=== PATIENT | female | born 1960 | race Caucasian/White ===

== ENCOUNTER 2023-04-24 08:21 | Emergency (ER) | payer OTHER, SELFPAY ==
[2023-04-24] VITALS (45 sets, daily range): BP systolic 96–137; BP diastolic 41–102; PULSE 86–118; RESP 14–39; TEMP 36.6; O2SAT 88–100
--- NOTE | ~2023-04-24 | XR_ITS ---
XR chest 1V portable 04/24/2023 09:01 Indication: Shortness of breath. COPD. Procedure: AP portable chest Comparison: Comparison to multiple prior studies sequentially, with oldest reviewed study dated 07/15. Findings: Heart size normal. No focal air space disease, pulmonary edema, pleural effusion or suspect ed pneumothorax. The lungs are hyperinflated which is consistent with, but not diagnostic of chronic obstructive pulmonary disease. There are multiple healed left rib fractures. No acute osseous abnorma lity. Osteopenia. Impression: 1: No acute cardiopulmonary disease. Reviewed, dictated and finalized at location B. Impression: 1: No acute cardiopulmonary disease.
--- NOTE | 2023-04-24 08:34 | ECG_ITS ---
Measurements Intervals [place] Rate: 120 P: 78 NV: 115 QRS: 71 QRSD: 82 T: 61 QT: 294 QTc: 417 Interpretive Statements SINUS TACHYCARDIA WITH SHORT NV INTERVAL VOLTAGE CRITERIA FOR LVH BASELINE ARTIFACT- II, III, AVR, AVL, AVF ABNORMAL ECG NO PREVIOUS ECG AVAILABLE FOR COMPARISON Electronically Signed On 04-24-2023 9:32:40 CDT by Baldev Hogan D.O.
--- NOTE | 2023-04-24 08:55 | ED.GENADULT ---
HPI - General Adult General Chief complaint: Fall <Kvng Danielson MD - Last Filed: 04/24/23 18:17> Stated complaint: BUTTOCK LAC, SOB HX COPD <Kvng Danielson MD - Last Filed: 04/24/23 18:17> Time Seen by Provider: 04/24/23 08:51 <Kvng Danielson MD - Last Filed: 04/24/23 18:17> History of Present Illness HPI narrative: 63-year-old female presented the ED for evaluation of increased shortness of breath and back pain after a fall. Patient reports that she lost her balance last night and struck a dresser. Patient does have history of COPD but is not on oxygen at home. Patient reports after being on the floor for the majority of the night she had increased shortness of breath. Patient was treated with 125% Medrol and a breathing treatment in route. <Kvng Danielson MD - Last Filed: 04/24/23 18:17> Related Data Allergies/adverse reactions: Allergies Allergy/AdvReac Type Severity Reaction Status Date / Time peanut Allergy Unknown Unknown Verified 04/24/23 08:43 <Kvng Danielson MD - Last Filed: 04/24/23 18:17> Review of Systems Review of Systems: All systems reviewed & are unremarkable except as noted in HPI and below <Kvng Danielson MD - Last Filed: 04/24/23 18:17> Exam Narrative: APPEARANCE: Nausea and vomiting upon arrival to the ED HEAD: normocephalic, atraumatic. EYES: PERRLA/EOMI, conjunctivae clear. NOSE: Normal no drainage EARS:TMS clear with good light reflex. THROAT: Pharynx clear, no exudate. NECK: Supple. No adenopathy, no masses. RESPIRATORY: Airway patent, respirations nonlabored. Clear to auscultation bilaterally, no rales, rhonchi, wheezing. CARDIOVASCULAR: Regular rate and rhythm without murmurs rubs or gallops. ABDOMINAL: Soft, nontender, nondistended, normal bowel sounds MUSCULOSKELETAL: Moves all extremities. Strength/ROM intact, No edema, No calf tenderness. NEURO: Alert. Cranial nerves II through XII intact. SKIN: Warm, dry. Normal Color <Kvng Danielson MD - Last Filed: 04/24/23 18:17> Course Course Emergency Course: 59-year-old female presented the ED for evaluation after having a ground-level fall and having increased shortness of breath. Patient does have history of COPD was unable to care for self or breathing treatment this morning. After being treated for anxiety and being provided a breathing treatment patient states she feels improved. Patient was saturating well on room air. Patient did have a minor leukocytosis of 12.8. Patient's hemoglobin was 10.2. Patient CMP is similar to her baseline. Patient was negative for COVID RSV and for influenza. Chest x-ray showed no acute cardiopulmonary abnormality. EKG showed sinus tachycardia. Patient's laceration was repaired as described in the procedure note and patient was started on antibiotics. Patient's tetanus was updated. Patient was provided 2 days off from work. Patient was updated on reasons to return to the emergency department. All questions and concerns were addressed and patient was well-appearing at time of discharge. <Kvng Danielson MD - Last Filed: 04/24/23 18:17> Vital Signs Vital signs: Vital Signs Pulse Oximetry 88 L 04/24/23 08:26 Oxygen Delivery Room Air 04/24/23 08:26 Temperature 97.8 F 04/24/23 08:27 Pulse Rate 106 H 04/24/23 13:30 Respiratory Rate 19 04/24/23 13:16 Blood Pressure 137/68 04/24/23 13:16 Pulse Oximetry 99 04/24/23 13:16 Oxygen Delivery Nasal Cannula 04/24/23 08:38 Oxygen Flow Rate 2 04/24/23 08:38 <Kvng Danielson MD - Last Filed: 04/24/23 18:17> Vital Signs Pulse Oximetry 88 L 04/24/23 08:26 Oxygen Delivery Room Air 04/24/23 08:26 Temperature 97.8 F 04/24/23 08:27 Pulse Rate 106 H 04/24/23 13:30 Respiratory Rate 19 04/24/23 13:16 Blood Pressure 137/68 04/24/23 13:16 Pulse Oximetry 99 04/24/23 13:16 Oxygen Delivery Nasal Cannula 04/24/23 08:38 Oxygen Flow Rate 2
[2023-04-24] MEDS: LORazepam INJ (*CRX) 2 MG/ML VIAL 0.5 MG IV PUSH (09:03)
[2023-04-24] MEDS: SODIUM CHLORIDE 0.9% IV 1,000 ML 999 ML IV CONT (09:03)
[2023-04-24] MEDS: ONDANSETRON INJ 4 MG/2 ML VIAL IV PUSH (09:03)
[2023-04-24] MEDS: ALBUTEROL SULFATE NEB 2.5 MG/3 ML INH INHALATION (09:11)
[2023-04-24 09:29] LABS: Basophils Percent Auto 0.3 % (0.2-1.2); Eosinophils Percent Auto 0.2 % (0-4.4); Hematocrit 30.6 % (37.0-47.0); Hemoglobin 10.2 g/dL (12.0-15.0); Immature Granulocyte Absolute 0.15 K/mm3 (0.00-0.031); Immature Granulocyte Percent A 1.2 % (0-0.5); Lymphocytes Absolute Auto 1.25 K/mm3 (0.9-3.2); Lymphocytes Percent Auto 9.7 % (18.3-44.2); Mean Corpuscular HGB Conc 33.3 g/dl (32-36); Mean Corpuscular Hemoglobin 33.1 pg (26-34); Mean Corpuscular Volume 99.4 fl (80-100); Mean Platelet Volume 9.9 fl (7.4-10.4); Monocytes Absolute Auto 0.6 K/mm3 (0.1-0.6); Monocytes Percent Auto 4.6 % (2.6-8.5); Neutrophils Absolute Auto 10.8 K/mm3 (1.3-6.7); Platelet Count Result 226 k/mm3 (150-375); Red Blood Count 3.08 M/mm3 (4.2-5.4); Red Cell Distribution Width 13.3 % (11.5-14.5); White Blood Count 12.8 K/mm3 (4.5-10.0)
[2023-04-24 09:38] LABS: Alanine Aminotransferase 15 U/L (6-35); Albumin Level 2.6 g/dL (3.5-5.1); Alkaline Phosphatase 41 U/L (38-126); Anion Gap 6 mmol/L (8-16); Aspartate Amino Transferase 20 U/L (14-36); Bilirubin,Total 0.4 mg/dL (0.2-1.3); Blood Urea Nitrogen 10 mg/dL (7-17); Calcium 6.6 mg/dL (8.4-10.2); Carbon Dioxide 20 mmol/L (22-30); Chloride 104 mmol/L (98-107); Creatine Kinase 73 U/L (30-135); Estimated CRCL calculation 55 ml/min; Estimated Glomerular Filt Rate > 60; Glucose 132 mg/dL (65-110); Potassium 4.8 mmol/L (3.4-5.0); Sodium 130 mmol/L (137-145)
[2023-04-24 09:47] LABS: NT Pro B Type Natriuretic Pept 32 pg/mL (19.9-100)
[2023-04-24 10:23] LABS: Influenza A QL RT-PCR Negative (Negative); Influenza B QL RT-PCR Negative (Negative); RSV RNA, RT-PCR Negative (Negative); SARS-CoV-2 RNA PCR Negative (Negative)
[2023-04-24] MEDS: AMOXICILLIN/CLAVULANATE K 875-125 MG TAB 1 TABLET PO (13:11)
[2023-04-24] MEDS: TETANUS,DIPHTHERIA,AC PERTUSSIS ADULT (0.5 ML) BOOSTRIX IM (13:11)
[2023-04-24] MEDS: AZITHROMYCIN 250 MG TABLET 500 MG PO (13:11)
== END 2023-04-24 13:44 | disposition home or self-care (01) ==
PROVIDERS: Emergency Provider Emergency Medicine; PCP Internal Medicine
DX: J44.1 Chronic obstructive pulmonary disease with (acute) exacerbation (principal); S31.801A Laceration without foreign body of unspecified buttock, initial encounter; W01.190A Fall on same level from slipping, tripping and stumbling with subsequent striking against furniture, initial encounter; Z20.822 Contact with and (suspected) exposure to COVID-19; Z23 Encounter for immunization
CPT/HCPCS: 12005; 36415; 71045; 80053; 82550; 83880; 85025; 87637; 90471; 90715; 93005; 94640; 96361; 96374; 96375; 99284; A9270; J2060; J2405; J7030

== ENCOUNTER 2023-08-08 15:28 | Emergency (ER) | payer OTHER, SELFPAY ==
[2023-08-08 15:42] VITALS: BP 133/68; PULSE 96; RESP 16; TEMP 36.3; O2SAT 97
--- NOTE | 2023-08-08 15:50 | ED.GENADULT ---
HPI - General Adult General Chief complaint: Unspecified Stated complaint: chills, decreased appetite Time Seen by Provider: 08/08/23 17:37 Source: patient Mode of arrival: ambulatory Limitations: no limitations History of Present Illness HPI narrative: Patient is a 63-year-old female who presents emergency department today ambulatory with a steady gait for evaluation of generalized body aches, decreased appetite, chills that has been going on for about a week now. Denies any chest pain, shortness of breath, urinary symptoms, dizziness, nausea, vomiting, diarrhea, abdominal pain. Denies any known exposure to anybody with any similar illness. She states she is freezing. Did not take any medications. Related Data Allergies Allergy/AdvReac Type Severity Reaction Status Date / Time peanut Allergy Unknown Unknown Verified 04/24/23 08:43 Review of Systems Review of Systems: CONSTITUTIONAL:+ chills, decreased appetite, generalized fatigue and body aches EYES: Denies visual changes, redness, or discharge. ENT: Denies rhinorrhea, congestion, sore throat, or otalgia. CARDIOVASCULAR: Denies chest pain, palpitations, or edema. RESPIRATORY: Denies cough or dyspnea. GASTROINTESTINAL: Denies abdominal pain, nausea, vomiting, or diarrhea. GENITOURINARY: Denies dysuria or hematuria. SKIN: Denies rash or itching. MUSCULOSKELETAL: Denies back pain. NEUROLOGIC: Denies headache, numbness, or weakness. PSYCHIATRIC: Denies anxiety or depression. All systems reviewed & are unremarkable except as noted in HPI and below Exam Narrative: BRIEF FOCUSED EXAM: elderly thin female resting on the chair, respirations regular, even, and non-labored, she has the chills presently and appears fatigued. Lungs are clear throughout. 1740: GENERAL: elderly thin female resting on the chair, respirations regular, even, and non-labored, she has the chills presently and appears fatigued. HEAD: Normocephalic, atraumatic. EYES: PERRLA and EOMI. ENT: Nares clear, no rhinorrhea or epistaxis. Mucous membranes moist. NECK: Supple. CHEST: Clear to auscultation. No respiratory distress. HEART: Regular rate and rhythm. No murmur heard. Normal peripheral pulses. ABDOMEN: Soft, nontender, nondistended, normal active bowel sounds. EXTREMITIES: Normal range of motion. No edema. SKIN: Warm, dry, no rash. NEURO: No focal deficits. A&O x4 PSYCH: Normal mood and affect. Course Vital Signs Vital signs: Vital Signs Temperature 97.4 F L 08/08/23 15:42 Pulse Rate 96 08/08/23 15:42 Respiratory Rate 16 08/08/23 15:42 Blood Pressure 133/68 08/08/23 15:42 Pulse Oximetry 97 08/08/23 15:42 Oxygen Delivery Room Air 08/08/23 15:42 Temperature 97.4 F L 08/08/23 15:42 Pulse Rate 74 08/08/23 17:44 Respiratory Rate 18 08/08/23 17:44 Blood Pressure 124/77 08/08/23 17:44 Pulse Oximetry 100 08/08/23 17:44 Oxygen Delivery Room Air 08/08/23 15:42 Medical Decision Making MDM Narrative Medical decision making narrative: presents for viral symptoms. will obtain viral swab. she has no other concerning reported symptoms or abnormal vitals, she is non-toxic Lab before the viral swab is negative. Patient has no other concerns reported symptoms. Her symptoms do still sound very viral. She was given medication while here. We discussed supportive care measures for symptoms including [id number] cold and flu medication. No further workup warranted at this time without any other reported symptoms. Patient is nontoxic in appearance. Stable re-evaluation exam just before discharge. Patient in no acute distress. Vitals within normal limits. Discussed return precautions with the patient including all the red flag signs or symptoms of when to return the patient. The patient verbalized understanding and was agreeable with discharge and close follow-up Vital Signs Vital Signs: Vital Signs Temperature 97.4 F L 08/08/23 15:42 Pulse Rate 96
[2023-08-08 16:31] LABS: Influenza A QL RT-PCR Negative (Negative); Influenza B QL RT-PCR Negative (Negative); SARS-CoV-2 RNA PCR Negative (Negative)
[2023-08-08] MEDS: ACETAMINOPHEN 500 MG TABLET 1000 MG PO (17:31)
[2023-08-08 17:44] VITALS: BP 124/77; PULSE 74; RESP 18; O2SAT 100
== END 2023-08-08 17:46 | disposition home or self-care (01) ==
PROVIDERS: Emergency Provider Nurse Practitioner; PCP Internal Medicine
DX: B34.9 Viral infection, unspecified (principal); R68.83 Chills (without fever); Z20.822 Contact with and (suspected) exposure to COVID-19
CPT/HCPCS: 87636; 99283; A9270

== ENCOUNTER 2024-12-09 12:33 | Outpatient (CLI) | payer MEDICARE, SELFPAY ==
--- OUTSIDE RECORDS SUMMARY | 2024-12-09 14:06 | XMS_ITS | Clinical Summary ---
Author Organization [facility] Address [address] [place] [address] Care Team Providers Care Process Stripper Name Role Phone Crow EDEN MD, Sher Mike Primary Care Provider [phone] Source Comments [facility] Affiliates and Associated Physician Practices is amultiple site organization consisting of ambulatory clinics and hospital sitesin [place]. This disclosure is being madepursuant to the Care Everywhere program and may not contain all information available regarding this patient. 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[employer] Gender Identity Not on file Sexual Orientation Not on file Plan of Treatment Health Maintenance Due Date Last Done Comments BONE DENSITY TESTING 1959 COLOGUARD (AGES 45-75) - COL ON CA SCREENING 1959 COLON MONITORING 1959 COLONOSCOPY - COLON CA SCREENING 1959 CT COLONOGRAPHY - COLON CA SCREENING 1959 Colorectal Cancer Screening 1959 FIT - COLON CA SCREENING 1959 FLEX SIG - COLON CA SCREENING 1959 LIPID TESTING 1959 MAMMOGRAM 1959 HIV SCREENING 1974 HEPATITIS C SCREENING 01/28/1977 DTAP/TDAP/TD VACCINES (1 - Tdap) 1978 PNEUMOCOCCAL VACCINE 50+ (1 of 1 - PCV) 2009 ZOSTER VACCINE (1 of 2) 2009 COVID-19 VACCINE (1 - 2023-2 5 season) 2024 DEPRESSION SCREENING 08/14/2024 INFLUENZA VACCINE (Season Ended) 2025 Respiratory Syncytial Virus (RSV) Vaccine Pt: or over 60 yrs (1 - 1-dose 75+ series) 2034 HEPATITIS B VACCINE Aged Out No longe r eligible based on patient's age to complete this topic HIB VACCINE Aged Out No longer eligi ble based on patient's age to complete this topic HPV VACCINE Aged Out No longer eligi ble based on patient's age to complete this topic MENINGOCOCCAL (Group B) VACC INE SHARED DECISION-MAKING Aged Out No longer eligibl e based on patient's age to complete this topic MENINGOCOCCAL GROUPS A/C/Y/W VACCINE Aged Out No longer eligible b ased on patient's age to complete this topic Insurance [facility] Care Teams Process Stripper Relationship Specialty Start Date End Date Sher Maria III, MD [address] [place] [address] PCP - General 11/16/09
--- OUTSIDE RECORDS SUMMARY | 2024-12-09 14:06 | XMS_ITS | CONTINUITY OF CARE DOCUMENT ---
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
--- OUTSIDE RECORDS SUMMARY | 2024-12-09 14:06 | XMS_ITS | Clinical Summary ---
Author Organization [id number] Address [address] [place] [address] Phone Care Team Providers Care Patient Educator Name Role Phone Bassam Blackman MD Primary Care Provider Elsa Maurice MD Unavailable Molly Osorio MD Unavailable [phone] Tigre Madison MD Unavailable John Gorman MD Unavailable [phone] Aditi Eckert MD Unavailable [phone] Allergies No known active allergies Medications calcium carbonate (FAST DISSOLVE ANTACID) 600 mg calcium (1.5 gram) chewable tablet 1 twice a day 60 0 0 Active fluticasone furoate-vilante rol (BREO ELLIPTA) 100-25 mcg/dose diskus inhaler Inhale 1 puff daily Rinse mouth with water after use. Do not swallow. Active albuterol HFA (PROVENTIL HFA,VENTOLIN HFA,PROAIR HFA) 90 mcg/actuation inhaler Inhale 2 puffs every 6 (six) hours as needed for wheezing 1 Inhaler 9 Active varicella-zoste r [id number], PF, (Shingrix, PF,) 50 mcg/0.5 mL vaccine Inject 0.5 ml IM day 0 and then repeat 2 months later. 0.5 mL 1 0 Active cyclobenzaprine (FLEXERIL) 10 mg tablet TAKE 1 TABLET(10 MG) BY MOUTH EVERY NIGHT 30 tablet 2 Active primidone (MYSOLINE) 50 mg tablet Take 1 tablet (50 mg total) by mouth nightly 30 tablet 2 Active mupirocin (BACTROBAN) 2 % ointment Apply topically 2 (two) times a day 30 g 2 3 Active folic acid (FOLVITE) 1 mg tablet Take 2 tablets (2 mg total) by mouth daily 90 tablet 1 3 Active traMADoL (ULTRAM) 50 mg tablet Take 1 tablet (50 mg total) by mouth every 8 (eight) hours as needed for pain 90 tablet 1 4 Active ergocalciferol (VITAMIN D) 50,000 unit capsule TAKE 1 CAPSULE BY MOUTH 1 TIME A WEEK 12 capsule 4 Active upadacitinib (Rinvoq) 15 mg tablet extended release 24 hrIndications:R heumatoid Arthritis Take 15 mg by mouth daily 30 tablet 2 4 Active methotrexate 2.5 mg tablet TAKE 6 TABLETS(15 MG) BY MOUTH EVERY 7 DAYS 72 tablet 4 Active omeprazole (PriLOSEC) 40 mg capsule TAKE 1 CAPSULE(40 MG) BY MOUTH DAILY 90 capsule 4 Active predniSONE (DELTASONE) 5 mg tablet Take 1 tablet (5 mg) by mouth daily 90 tablet 1 5 Active Active Problems Problem Noted Date Diagnosed Date Bilateral hand numbness 01/01/2024 Assessment & Plan (01/01/2024 4:12 PM CDT): Has bilat UE and LE numbness with no dull/sharp and light touch sensations from knees down bilat and on bilat distal hands. Pt has extremely poor diet with only 1 meal a day and drinks etoh every day and bmi is very low. She was encouraged to eat more and increase her bmi but she feels that she is overweight if she goes over 100lb so she might have anorexia and malnutrition. She states that she has been taking a mvit every day but recently her vit d was very low again. This could be causing a neuropathy if she is vitamin deficient/nutrient deficient and her alcohol use could also be causing this. Per pt this started with recent fall but unlikely. Will check c spine and l spine and hip xrays and bilat ue/le emg/nct. Will also check b1 and if low start pt on supplement. Her b12 was wnl recently. Seen with Dr. Gorman today. 1 h spent with pt today between Dr. Gorman and myself. She also has a mild anemia. Leg numbness 01/01/2024 Assessment & Plan (01/01/2024 4:13 PM CDT): Has bilat UE and LE numbness with no dull/sharp and light touch sensations from knees down bilat and on bilat distal hands. Pt has extremely poor diet with only 1 meal a day and drinks etoh every day and bmi is very low. She was encouraged to eat more and increase her bmi but she feels that she is overweight if she goes over 100lb so she might have anorexia and malnutrition. She states that she has been taking a mvit every day but recently her vit d was very low again. This could be causing a neuropathy if she is vitamin deficient/nutrient deficient and her alcohol use could also be causing this. Per pt this started with recent fall but unlikely. Will check c spine and l spine and hip xrays and bilat ue/le emg/nct. Will also check b1 and if low start pt on supplement. Her b12 was wnl recently. Seen with Dr. Gorman today. Chronic right-sided low back pain with right-gayla ed sciatica 01/01/2024 Assessment & Plan (01/01/2024 4:13 PM CDT): Check lumbar and hip xrays. Pain of right hip 01/01/2024 Assessment & Plan (01/01/2024 4:14 PM CDT): Fell in September at home and hit lt hip but has pain over rt hip and with rt hip rotation and pain down rt leg will check lumbar spine xrays, bilat hip xrays. Edema due to malnutrition 01/01/2024 Assessment & Plan (01/01/2024 4:20 PM CDT): Pt has extremely poor diet with only 1 meal a day and drinks etoh every day and bmi is very low. She was encouraged to eat more and increase her bmi but she feels that she is overweight if she goes over 100lb so she might have anorexia and malnutrition. She states that she has been taking a mvit every day but recently her vit d was very low again. Check bnp with today's labs also. Anemia 09/18/2023 Assessment & Plan (03/25/2024 8:37 AM CDT): Pt has extremely poor diet with only 1 meal a day and drinks etoh every day and bmi is very low. She was encouraged to eat more and increase her bmi but she feels that she is overweight if she goes over 100lb so she might have anorexia and malnutrition. She states that she has been taking a mvit every day but recently her vit d was very low again. Recheck vit d today. Seen with Dr. Gorman today. Assessment & Plan (01/01/2024 4:12 PM CDT): Pt has extremely poor diet with only 1 meal a day and drinks etoh every day and bmi is very low. She was encouraged to eat more and increase her bmi but she feels that she is overweight if she goes over 100lb so she might have anorexia and malnutrition. She states that she has been taking a mvit every day but recently her vit d was very low again. This could be causing a neuropathy and anemia if she is vitamin deficient/nutrient deficient and her alcohol use could also be causing this. Will also check b1 and if low start pt on supplement. Her b12 was wnl recently. Seen with Dr. Gorman today. Assessment & Plan (09/18/2023 1:59 PM TRAFFIC POLICE OFFICER): Was anemic in June and she ended up stopping meloxicam. She had egd/colo in August and was told she had H pylori infection but no one contacted her for tx. She is taking omeprazole and her abd pain is much better. Still smokes and drinks beer every night. Not eating more then 2 meals a day also. Works 2nd shift and eats late then goes to bed. Check anemia panel and if iron is low will have pt start otc iron supplement. Her egd showed gastritis and ridley's esophagus, advised her to continue PPI and f/u with gi for this. Will also see if she was + for H Pylori and have gi call in tx if neded. Advised her to not eat 3 h before going to sleep and to have 5 small meals a day and avoid acidic foods and EtOH. Chronic cough 03/24/2023 Assessment & Plan (03/24/2023 4:16 PM CDT): Check cxr. Advised to stop smoking again. Right hip pain 03/24/2023 Assessment & Plan (03/24/2023 4:17 PM CDT): Full rom of bilat hips. Appears to have bursitis, offered her a rt hip bursa steroid inj if this does not resolve. Skin lesion 11/21/2022 Assessment & Plan (11/21/2022 1:01 PM CDT): To derm for eval. Hyperlipidemia 06/21/2021 Assessment & Plan (06/21/2021 9:35 AM TRAFFIC POLICE OFFICER): Hx of hyperlipidemia, per pt pcp is requesting we check flp with today's labs for him. Used to be on statin in past. Coarse tremors 03/05/2021 Assessment & Plan (06/11/2021 8:04 AM CDT): Her pcp wanted her to see neuro but she has not. Informed her that the hand tremors could be worse due to alcohol use and to stop it but she is not sure she can. Normal TSH 02/2021. Her anxiety is probably contributing to this also but has declined anxiety meds in past. No si/hi. Assessment & Plan (03/05/2021 11:51 AM CDT): Her pcp wanted her to see neuro but she has not. Informed her that the hand tremors could be worse due to alcohol use and to stop it but she is not sure she can. Check tsh. Her anxiety is probably contributing to this also but has declined anxiety meds in past. No si/hi. Bilateral hip pain 11/23/2020 Assessment & Plan (11/23/2020 4:55 PM CDT): Very tender on ext palpation of rt hip and pain with int rotation. Discussed that she might have rt hip oa and bursitis. Will xray bilat hips since occ she has lt hip pain also. Hypertension, benign 01/08/2020 Assessment & Plan (01/08/2020 4:06 PM CDT): bp not under control. Per pt her pcp started her on toprol but she stopped it after 2 months because I hate taking so many meds she states. Encouraged her to contact pcp and restart bp meds, informed pt of increased risk of cva/htn with uncontrolled htn. Weight loss 01/14/2019 Abnormal CXR 01/14/2019 Assessment & Plan (10/14/2022 8:57 AM TRAFFIC POLICE OFFICER): Images from the original note were not included. Hx of copd. Repeat cxr 12/2021 stable. Advised pt to stop smoking and f/u with dr coates her pulm. Cxr 12/2021: Assessment & Plan (06/21/2021 7:42 AM TRAFFIC POLICE OFFICER): Cxr 09/2020 showed atherosclerosis and chronic blunting of lt costophrenic angle along with interstitial prominence. In past she was advised pt to see Dr Coates because she has not seen him in over 6 months. Advised pt to stop smoking again. Was referred for cxr in February but did not do it. Will re-order Cxr. Assessment & Plan (06/11/2021 8:05 AM CDT): Cxr 09/2020 showed atherosclerosis and chronic blunting of lt costophrenic angle along with interstitial prominence. In past she was advised pt to see Dr Coates because she has not seen him in over 6 months. Advised pt to stop smoking again. Was referred for cxr in February but did not do it. Will re-order Cxr. Assessment & Plan (03/05/2021 11:49 AM CDT): Cxr 09/2020 showed atherosclerosis and chronic blunting of lt costophrenic angle along with interstitial prominence. In past she was advised pt to see dr coates because she has not seen him in over 6 months. Advised pt to stop smoking again. Recheck cxr. Assessment & Plan (11/23/2020 5:00 PM CDT): Cxr 09/2020 showed atherosclerosis and chronic blunting of lt costophrenic angle along with interstitial prominence. Advised pt to see dr coates because she has not seen him in over 4 months. Advised pt to stop smoking again. Assessment & Plan (03/12/2020 11:49 AM CDT): Cxr 06/01 showed atherosclerosis and chronic blunting of lt costophrenic angle. Advised pt to see dr coates but she did not. Advised pt to stop smoking again. Assessment & Plan (02/03/2020 8:27 AM CDT): Cxr 06/01 showed atherosclerosis and chronic blunting of lt costophrenic angle. Advised pt to see dr coates but she did not. Advised pt to stop smoking again. Assessment & Plan (09/16/2019 7:39 AM TRAFFIC POLICE OFFICER): Cxr 06/01 showed atherosclerosis and chronic blunting of lt costophrenic angle. Advised pt to see dr coates. Advised pt to stop smoking again. Stress 01/14/2019 Low vitamin D level 03/05/2018 Assessment & Plan (09/19/2024 8:30 AM TRAFFIC POLICE OFFICER): Vitamin D wnl 45 on 03/2024 labs. Recheck today since pt not always compliant with her supplements. On Rx vit d 50,000u po qweek. Assessment & Plan (04/26/2024 8:37 AM CDT): Vitamin D wnl 45 on 03/2024 labs. Recheck today since pt not always compliant with her supplements. On Rx vit d 50,000u po qweek. Assessment & Plan (03/25/2024 8:39 AM CDT): Vitamin D wnl 45 on 12/2023 labs. Recheck today since pt not always compliant with her supplements. On Rx vit d 50,000u po qweek. Will recheck vit d today. Assessment & Plan (01/01/2024 4:19 PM CDT): Vitamin D low at 7 on 09/2023 labs. On Rx vit d 50,000u po qweek. Will recheck vit d today. Assessment & Plan (09/18/2023 7:46 AM TRAFFIC POLICE OFFICER): Vitamin D 22 on 06/2023 On Rx vit d 50,000u po qweek. Will recheck vit d today. Assessment & Plan (08/28/2023 8:30 AM TRAFFIC POLICE OFFICER): Vitamin D 25 in February. On Rx vit d 50,000u po qweek. Will recheck vit d today. Assessment & Plan (06/30/2023 8:06 AM TRAFFIC POLICE OFFICER): Vitamin D 25 in February. On Rx vit d 50,000u po qweek. Will recheck vit d today. Assessment & Plan (07/18/2022 10:31 AM TRAFFIC POLICE OFFICER): Vitamin D 25 in February. On Rx vit d 50,000u po qweek. Will recheck vit d today. Assessment & Plan (06/11/2021 8:03 AM CDT): Vitamin D 25 in February. On Rx vit d 50,000u po qweek. Will recheck vit d today. Assessment & Plan (03/05/2021 8:06 AM CDT): Vitamin D 81in November so her rx vit d was decreased from week to q2 weeks. will recheck vit d today. Assessment & Plan (01/18/2021 1:45 PM CDT): Vitamin D 81in November so her rx vit d was decreased from week to q2 weeks. will recheck vit d at next visit in 2 months. Assessment & Plan (11/23/2020 4:58 PM CDT): On rx vit d 50,0000u po qweek. Did not get prolia in July because she did no come back to recheck her vit d which was low in June at 18. States sh eis taking her rx vit d so will recheck vit d and restart prolia approval. Continue ca and vit d. Assessment & Plan (06/29/2020 1:04 PM TRAFFIC POLICE OFFICER): Vit D at goal at 50 on 12/2019. Continue ca and vit d. Assessment & Plan (03/12/2020 11:48 AM CDT): Vit D at goal at 50 on 12/2019. Continue ca and vit d. Assessment & Plan (02/03/2020 8:29 AM CDT): Vit D at goal at 50 on 12/2019. Continue ca and vit d. Assessment & Plan (01/08/2020 8:08 AM CDT): Vit d at goal at last visit. Will recheck before her next prolia inj. Assessment & Plan (09/16/2019 7:37 AM TRAFFIC POLICE OFFICER): Vit d at goal at last visit. Will recheck at next visit before her next prolia inj. Assessment & Plan (05/24/2019 8:09 AM CDT): Per most recent DXA (06/23/17) with T score -3.4 in L-spine and -3.2 in left femoral neck. Is maintained on alendronate 70 mg weekly and Ca+D. Pt encouraged to do weight bearing exercises. Encounter for long-term (current) use of medicat ions 02/24/2017 Overview (06/29/2020): Assessment & Plan (09/19/2024 8:20 AM TRAFFIC POLICE OFFICER): Negative hepatitis 07/28. Quant gold neg 12/2019 BDS 25001---paj T score -3.3 Cxr 05/2019 Avise 06/2020---+ anti ccp, + RF, + anti cardiolipin and + anti c1q. Failed xeljanz, humira, enbrel. Did well on simponi aria but on 11/2023 stopped it on her own because she did not want to drive here every 2 months anymore. BDS 03/2023---lt hip t score -3.8/rt hip -3.2. lumbar spine T score -2.5 consistent with osteoporosis. Assessment & Plan (04/26/2024 8:36 AM CDT): Negative hepatitis 07/28. Quant gold neg 12/2019 BDS [id number]---rhz T score -3.3 Cxr 05/2019 Avise 06/2020---+ anti ccp, + RF, + anti cardiolipin and + anti c1q. Failed xeljanz, humira, enbrel. Did well on simponi aria but on 11/2023 stopped it on her own because she did not want to drive here every 2 months anymore. BDS 03/2023---lt hip t score -3.8/rt hip -3.2. lumbar spine T score -2.5 consistent with osteoporosis. Assessment & Plan (03/25/2024 3:53 PM CDT): Negative hepatitis 07/28. Quant gold neg 12/2019 BDS [id number]---slv T score -3.3 Cxr 05/2019 [facility]ise 06/2020---+ anti ccp, + RF, + anti cardiolipin and + anti c1q. Failed xeljanz, humira, enbrel. Did well on simponi aria but on 11/2023 stopped it on her own because she did not want to drive here every 2 months anymore. BDS 03/2023---lt hip t score -3.8/rt hip -3.2. lumbar spine T score -2.5 consistent with osteoporosis. Assessment & Plan (01/01/2024 8:33 AM CDT): Negative hepatitis 12/15. Quant gold neg 12/2019 BDS [id number]---tqr T score -3.3 Cxr 05/2019 [facility]ise 06/2020---+ anti ccp, + RF, + anti cardiolipin and + anti c1q. Failed xeljanz, humira, enbrel. BDS 03/2023---lt hip t score -3.8/rt hip -3.2. lumbar spine T score -2.5 consistent with osteoporosis. Assessment & Plan (09/18/2023 7:46 AM TRAFFIC POLICE OFFICER): Negative hepatitis 07/28. Quant gold neg 12/2019 BDS 89689---wox T score -3.3 Cxr 05/2019 [facility]ise 06/2020---+ anti ccp, + RF, + anti cardiolipin and + anti c1q. Failed xeljanz, humira, enbrel. BDS 03/2023---lt hip t score -3.8/rt hip -3.2. lumbar spine T score -2.5 consistent with osteoporosis. Assessment & Plan (08/28/2023 8:34 AM TRAFFIC POLICE OFFICER): Negative hepatitis 07/28. Quant gold neg 12/2019 BDS [id number]---rap T score -3.3 Cxr 05/2019 [facility]ise 06/2020---+ anti ccp, + RF, + anti cardiolipin and + anti c1q. Failed xeljanz, humira, enbrel. BDS 03/2023---lt hip t score -3.8/rt hip -3.2. lumbar spine T score -2.5 consistent with osteoporosis. Assessment & Plan (06/30/2023 8:06 AM TRAFFIC POLICE OFFICER): Negative hepatitis 07/28. Quant gold neg 12/2019 BDS [id number]---zzu T score -3.3 Cxr 05/2019 [facility]ise 06/2020---+ anti ccp, + RF, + anti cardiolipin and + anti c1q. Failed xeltristianz humira, Prolia on . Assessment & Plan (03/24/2023 8:06 AM CDT): Negative hepatitis 12/15. Quant gold neg 12/2019 BDS [id number]---ugp T score -3.3 Cxr 05/2019 [facility]ise 06/2020---+ anti ccp, + RF, + anti cardiolipin and + anti c1q. Failed xeljanz, humira, Prolia on . Assessment & Plan (11/21/2022 8:27 AM CDT): Negative hepatitis 12/15. Quant gold neg 12/2019 BDS [id number]---vvc T score -3.3 Cxr 05/2019 [facility]ise 06/2020---+ anti ccp, + RF, + anti cardiolipin and + anti c1q. Failed xeljanz, humira, Prolia on 12/14/2020. Assessment & Plan (07/18/2022 8:03 AM TRAFFIC POLICE OFFICER): Negative hepatitis 12/15. Quant gold neg 12/2019 BDS [id number]---dfw T score -3.3 Cxr 05/2019 [facility]ise 06/2020---+ anti ccp, + RF, + anti cardiolipin and + anti c1q. Failed xeljanz, humira, Prolia on 12/14/2020. Assessment & Plan (12/31/2021 2:34 PM CDT): Negative hepatitis 12/15. Quant gold neg 12/2019 BDS [id number]---lmm T score -3.3 Cxr 05/2019 [facility]ise 06/2020---+ anti ccp, + RF, + anti cardiolipin and + anti c1q. Failed xeljanz, humira, Prolia on 12/14/2020. Assessment & Plan (10/07/2021 10:48 AM TRAFFIC POLICE OFFICER): Negative hepatitis 12/15. Quant gold neg 12/2019 BDS [id number]---bnt T score -3.3 Cxr 05/2019 [facility]ise 06/2020---+ anti ccp, + RF, + anti cardiolipin and + anti c1q. Failed xeljanz, humira, Prolia on 12/14/2020. Assessment & Plan (06/21/2021 7:39 AM TRAFFIC POLICE OFFICER): Negative hepatitis 12/15. Quant gold neg 12/2019 BDS [id number]---jbb T score -3.3 Cxr 05/2019 [facility]ise 06/2020---+ anti ccp, + RF, + anti cardiolipin and + anti c1q. Failed xeljanz, humira, Prolia on 12/14/2020. Assessment & Plan (06/11/2021 8:03 AM CDT): Negative hepatitis 12/15. Quant gold neg 12/2019 BDS [id number]---lzy T score -3.3 Cxr 05/2019 [facility]ise 06/2020---+ anti ccp, + RF, + anti cardiolipin and + anti c1q. Failed xeljanz, humira, Prolia on 12/14/2020. Assessment & Plan (03/05/2021 8:04 AM CDT): Negative hepatitis 12/15. Quant gold neg 12/2019 BDS [id number]---eco T score -3.3 Cxr 05/2019 [facility]ise 06/2020---+ anti ccp, + RF, + anti cardiolipin and + anti c1q. Failed xeljanz, humira, Prolia on 12/14/2020. Assessment & Plan (01/18/2021 8:32 AM CDT): Negative hepatitis 12/15. Quant gold neg 12/2019 BDS 35926---jyv T score -3.3 Cxr 05/2019 [facility]ise 06/2020---+ anti ccp, + RF, + anti cardiolipin and + anti c1q. Failed xeljanz, humira, Prolia on 12/14/2020. Assessment & Plan (11/23/2020 4:13 PM CDT): Negative hepatitis 12/15. Quant gold neg 12/2019 BDS [id number]---csg T score -3.3 Cxr 05/2019 [facility]ise 06/2020---+ anti ccp, + RF, + anti cardiolipin and + anti c1q. Failed ludivina wilson, Assessment & Plan (06/29/2020 1:04 PM TRAFFIC POLICE OFFICER): Negative hepatitis 12/15. Quant gold neg 12/2019 BDS [id number]---cvo T score -3.3 Cxr 05/2019 Assessment & Plan (03/12/2020 11:48 AM CDT): Negative hepatitis 12/15. Quant gold neg 12/2019 BDS [id number]---wjg T score -3.3 Cxr 05/2019 Assessment & Plan (02/03/2020 8:26 AM CDT): Negative hepatitis 12/15. Quant gold neg 12/2019 BDS 77171---akx T score -3.3 Cxr 05/2019 Assessment & Plan (01/08/2020 8:08 AM CDT): Negative hepatitis 12/15. Quant gold neg 09/2018 BDS 14291---dfk T score -3.3 Cxr 05/2019 Assessment & Plan (09/16/2019 7:36 AM TRAFFIC POLICE OFFICER): Negative hepatitis 12/15. Quant gold neg 09/2018 Assessment & Plan (05/24/2019 8:09 AM CDT): Negative hepatitis 12/15. neg quant gold 04/29, repeat today. Assessment & Plan (07/28/2017 11:13 AM TRAFFIC POLICE OFFICER): Negative hepatitis 12/15. neg quant gold 04/29, repeat today. Assessment & Plan (02/24/2017 11:24 AM CDT): Negative hepatitis 12/15, neg quant gold 04/29. Osteoporosis 02/24/2017 Assessment & Plan (09/19/2024 8:32 AM TRAFFIC POLICE OFFICER): BDS 03/2023---lt hip t score -3.8/rt hip -3.2 but 10.6% increase in femoral bone density so will continue prolia sq q6 months. Pt given Prolia , due again 09/2024. Assessment & Plan (04/26/2024 8:37 AM CDT): BDS 03/2023---lt hip t score -3.8/rt hip -3.2 but 10.6% increase in femoral bone density so will continue prolia sq q6 months. Pt given Prolia , due again 09/2024. Assessment & Plan (03/25/2024 3:56 PM CDT): BDS 03/2023---lt hip t score -3.8/rt hip -3.2 but 10.6% increase in femoral bone density so will continue prolia sq q6 months. Pt given Prolia 03/25/2024 during today's viusit. Assessment & Plan (01/01/2024 8:41 AM CDT): BDS 03/2023---lt hip t score -3.8/rt hip -3.2 but 10.6% increase in femoral bone density so will continue prolia sq q6 months. Pt had Prolia on 07/17/2023. Is due again 01/2024, check vitamin d. Check BDS. Assessment & Plan (09/18/2023 7:46 AM TRAFFIC POLICE OFFICER): BDS 03/2023---lt hip t score -3.8/rt hip -3.2. lumbar spine T score -2.5 consistent with osteoporosis. Pt had Prolia on 07/17/2023. Is due again 01/2024, check vitamin d. Check BDS. Assessment & Plan (08/28/2023 8:34 AM TRAFFIC POLICE OFFICER): BDS 03/2023---lt hip t score -3.8/rt hip -3.2. lumbar spine T score -2.5 consistent with osteoporosis. Pt had Prolia on 07/17/2023. Is due again 01/2024, check vitamin d. Check BDS. Assessment & Plan (06/30/2023 1:05 PM TRAFFIC POLICE OFFICER): Per most recent DXA 07/02 showed hip T score -3.3 Pt had Prolia on 12/19/2022. Is due again, check vitamin d and start approval. Check BDS. Infuse prolia with her next simponi aria infusion, check vit d. Assessment & Plan (03/24/2023 8:06 AM CDT): Per most recent DXA 07/02 showed hip T score -3.3 Pt had Prolia on 12/19/2022. Check BDS. Assessment & Plan (11/21/2022 8:28 AM CDT): Per most recent DXA 07/02 showed hip T score -3.3. Informed again she is at high risk of fracture. Alendronate was stopped in past, she had been on it for 5 yrs. Pt had Prolia on 02/15/2022. was due again 08/2022 but missed appt. Check vit d and will start approval. Assessment & Plan (07/18/2022 8:05 AM TRAFFIC POLICE OFFICER): Per most recent DXA 07/02 showed hip T score -3.3. Informed again she is at high risk of fracture. Alendronate was stopped in past, she had been on it for 5 yrs. Pt had Prolia on 02/15/2022. is due again 08/2022. will start approval and check vit d. Assessment & Plan (12/31/2021 2:35 PM CDT): Per most recent DXA 07/02 showed hip T score -3.3. Informed again she is at high risk of fracture. Alendronate was stopped in past, she had been on it for 5 yrs. Pt had Prolia on . is due again, will start approval and check vit d. Assessment & Plan (10/11/2021 8:53 AM TRAFFIC POLICE OFFICER): Per most recent DXA 07/02 showed hip T score -3.3. Informed again she is at high risk of fracture. Alendronate was stopped in past, she had been on it for 5 yrs. Pt had Prolia on . She is due again 12/2021. Assessment & Plan (06/21/2021 7:41 AM TRAFFIC POLICE OFFICER): Per most recent DXA 07/02 showed hip T score -3.3. Informed again she is at high risk of fracture. Alendronate was stopped in past, she had been on it for 5 yrs. Pt had Prolia on 12/14/2020. She is due again so check vit d. Assessment & Plan (06/11/2021 8:02 AM CDT): Per most recent DXA 07/02 showed hip T score -3.3. Informed again she is at high risk of fracture. Alendronate was stopped in past, she had been on it for 5 yrs. Pt had Prolia on 12/14/2020. She is due again so check vit d. Assessment & Plan (03/05/2021 8:05 AM CDT): Per most recent DXA 07/02 showed hip T score -3.3. Informed again she is at high risk of fracture. Alendronate was stopped in past, she had been on it for 5 yrs. Pt had Prolia on 12/14/2020. Assessment & Plan (01/18/2021 8:32 AM CDT): Per most recent DXA 07/02 showed hip T score -3.3. Informed again she is at high risk of fracture. Alendronate was stopped in past, she had been on it for 5 yrs. Pt had Prolia on 12/14/2020. Assessment & Plan (11/23/2020 8:16 AM CDT): Per most recent DXA 07/02 showed hip T score -3.3. Informed again she is at high risk of fracture. Alendronate was stopped in past, she had been on it for 5 yrs. Pt had prolia on 02/03/2020. Due for prolia again after 08/05/2020. Assessment & Plan (06/29/2020 1:04 PM TRAFFIC POLICE OFFICER): Per most recent DXA 07/02 showed hip T score -3.3. Informed again she is at high risk of fracture. Alendronate was stopped in past, she had been on it for 5 yrs. Pt had prolia on 02/03/2020. Due for prolia again after 08/05/2020. Assessment & Plan (03/16/2020 3:13 PM CDT): Per most recent DXA 07/02 showed hip T score -3.3. Informed again she is at high risk of fracture. Alendronate was stopped in past, she had been on it for 5 yrs. Pt had prolia on 02/03/2020. Due for prolia again after 08/05/2020. Assessment & Plan (02/03/2020 3:25 PM CDT): Per most recent DXA 07/02 showed hip T score -3.3. Informed again she is at high risk of fracture. Alendronate was stopped in past, she had been on it for 5 yrs. Pt had prolia today 02/03/2020. Assessment & Plan (01/08/2020 4:09 PM CDT): Per most recent DXA 07/02 showed hip T score -3.3. Informed again she is at high risk of fracture. Alendronate was stopped in past, she had been on it for 5 yrs. prolia given to pt 06/03/2019 but she never f/u for prolia which was due last month. She is due again. Assessment & Plan (09/16/2019 7:37 AM TRAFFIC POLICE OFFICER): Per most recent DXA (06/23/17) with T score -3.4 in L-spine and -3.2 in left femoral neck. Alendronate was stopped, she had been on it for 5 yrs. prolia given to pt 06/03/2019. Assessment & Plan (05/27/2019 4:00 PM CDT): Per most recent DXA (06/23/17) with T score -3.4 in L-spine and -3.2 in left femoral neck. Alendronate was stopped, she had been on it for 5 yrs. prolia approved in october but pt has not scheduled it. Advised her to schedule it and will check vit. D today. Prolia approved until 10/2019. Declines flu vaccine, informed of risk of infection. Assessment & Plan (11/27/2017 12:43 PM CDT): Per most recent DXA (06/23/17) with T score -3.4 in L-spine and -3.2 in left femoral neck. Is maintained on alendronate 70 mg weekly and Ca+D. Pt encouraged to do weight bearing exercises. Assessment & Plan (07/28/2017 11:11 AM TRAFFIC POLICE OFFICER): On alendronate. bmd shows osteoporosis but is better than 2 years ago as previous hip was -2.9 and it is now -2.5. Will con't with alendronate weekly as well as calcium 600mg bid with vitamin d. Assessment & Plan (06/09/2017 11:32 AM CDT): On alendronate. Repeat bone density. Assessment & Plan (02/24/2017 11:36 AM CDT): On weekly alendronate and ca 600mg bid with vit d. Due for bmd this month, so will place order. Sinusitis 11/11/2015 Overview (11/17/2016): Sinusitis Rheumatoid arthritis involvi ng both hands with positive rheumatoid factor 12/28/2013 Overview (09/19/2019): Rheumatoid arthritis Shingrex vaccine 09/02 Assessment & Plan (09/19/2024 3:47 PM TRAFFIC POLICE OFFICER): Low cdai, on rinvoq x 4 months. She needs to redo the free rinvoq application, turned it in to us to fill out today. Doing well on it and no SE. Stopped smoking a year ago but now states she still has a cigarette once in a while. She denies hx of clots/cad/dm2. Will continue rinvoq. Check labs today. Declines flu vaccine or covid vaccines. Advised her to get shingrix. Continue mtx 15 mg po qweekly/1 mg FA every day. Assessment & Plan (04/26/2024 12:55 PM CDT): Low cdai, on rinvoq x 1 month. Doing well on it and no SE. Stopped smoking a year ago and no hx of clots/cad/dm2. Will start rinvoq approval. Check labs today including lipids, pt is fasting this morning. Declines flu vaccine or covid vaccines. Advised her to get shingrix. Continue mtx 15 mg po qweekly/1 mg FA every day. Assessment & Plan (03/25/2024 3:59 PM CDT): High cdai. Her last Simponi was 12/05. She does not want to take simponi aria infusions anymore because it is too much for her to drive here the 30 min every 2 months she states. She failed enbrel, humira and xeljanz in past. She did stop smoking a year ago so will start rinvoq 15 mg po every day. Gave pt 1 month of samples. Discussed potential risks such as clots, lft elevation, anemia, low wbc, risk of infection, elevated cholesterol. Patient was a no show on 02/04, she canceled on 02/25, and she was a no show on 03/14. Continue mtx 15 mg po qweekly/1 mg FA every day. Due to burden of disease will give her 100mg of triamcinolone today, discussed risks and se of systemic steroids, denies hx of dm2. Assessment & Plan (01/01/2024 4:15 PM CDT): Low-mod cdai. Has improved since she restarted mtx 15 mg po qweek and FA 1 mg po every day. Continue mtx 15 mg po qweekly/1 mg FA qd and simponi aria IV q 2months. Check labs. Has tramadol to use for pain prn. Seen with Dr. Gorman today. Assessment & Plan (09/18/2023 2:02 PM TRAFFIC POLICE OFFICER): Low cdai. Has improved since she restarted mtx 15 mg po qweek and FA 1 mg po every day. Continue mtx and simponi aria. Check labs. Advised pt to stop smoking and drinking EtOH. Remain off meloxicam from now on and if her joints hurt more we can give her tramadol 50mg tid prn for pain. Advised her to not take it when she has to drive or operate heavy machinery and that it can be constipating, sedating and habit forming and to not mix it with EtOH. Assessment & Plan (08/28/2023 8:30 AM TRAFFIC POLICE OFFICER): High cdai. Flaring up, most likely due to stopping mtx. Restart mtx 15 mg po qweek and FA 1 mg po every day. Continue simponi aria. Today due to burden of dz will give her 80mg of triamcinolone IM today, discussed risks and se of systemic steroids. Check labs today. 30 min spent with pt today. Assessment & Plan (06/30/2023 1:07 PM TRAFFIC POLICE OFFICER): High cdai. Flaring up, most likely due to stopping mtx. Restart mtx 15 mg po qweek and FA 1 mg po every day. Continue simponi aria. Today due to burden of dz will give her 80mg of triamcinolone IM today, discussed risks and se of systemic steroids. Check labs today. 30 min spent with pt today. Assessment & Plan (06/05/2023 2:04 PM CDT): Mod cdai. Flaring up. Just got over bronchitis and had to be on antibiotics. Had to stop her mtx. Due to burden of disease will give her 100mg of triamcinolone IM today, discussed risks and se of systemic steroids. She only eats 2 meals a day, advised her to increase caloric intake. 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 Informed her again she has lost 8 lb in past few years, she thinks she is heavy. Greatly improved since she started simponi aria overall so will continue present meds. She wanted to go to [facility] but then changed her mind and restarted her simponi aria infusions again. Continue mtx. Quant gold neg 12/2019. Hepatitis panel utd. Will continue mtx. She is seeing a pulm in [place] now. He told her she has some CAD, pt still smokes, advised her to stop smoking. Continue prednisone 5 mg po every day, she is getting prolia q 6 months for osteoporosis prevention while on systemic steroids. Assessment & Plan (11/21/2022 12:58 PM CDT): Low cdai. Greatly improved since she started simponi aria but does not want to continue it, can't afford the gas prices and it takes 30 min to get here every 2 months. In past she was afraid to inject herself but now is willing to try so she does not have to come and see us every 2 months, only every 3 months now. Will stop simponi aria and go to [facility] sq q2 weeks. Continue mtx. Quant gold neg 12/2019. Hepatitis panel utd. Will continue mtx. She is seeing a pulm in [place] now. He told her she has some CAD, pt still smokes, advised her to stop smoking and f/u with pcp or med dir for her CAD. Assessment & Plan (07/18/2022 12:46 PM TRAFFIC POLICE OFFICER): Images from the original note were not included. Low cdai. Greatly improved since she started simponi aria. Continue simponi aria and mtx. Quant gold neg 12/2019. Hepatitis panel utd. Will continue mtx. Dr Coates allowed her to continue mtx but she has not f/u with him in over a year and she has hx of copd and continues to smoke. Today advised her to f/u with Dr. Coates and advised to stop smoking. cxr 12/2021 no acute findings. Encouraged pt to improve diet and try to eat at least 2 meals a day and try to get to 120 lb. She continues to lose weight. Pt is still only eating at most 800 calories a day, eats only a main meal and a snack. Informed her again that she is underweight. Her colo per pt was nl 2 weeks ago. Advised her to stop smoking and drinking. Continue meloxicam, denies gi upset with it and she takes it with food. Previous serologies: [facility] 06/2020---+ anti ccp, + RF, + anti cardiolipin and + anti c1q. Again advised pt to stop smoking, informed smoking and + anti cardiolipin increases risk of clots. Rt hand US 09/2020 Cont MTX 20 mg PO weekly, folic acid 2 mg daily,prednisone 5 mg daily. Declines flu vaccine. Had shingrix, prevnar 13 and pneumovax. Assessment & Plan (01/03/2022 12:46 PM CDT): Images from the original note were not included. Greatly improved since she started simponi aria. Continue simponi aria and mtx. Quant gold neg 12/2019. Hepatitis panel utd. Will continue mtx. Dr Coates allowed her to continue mtx but she has not f/u with him, advised her to f/u with him. She did not do her yearly Cxr again, will re-order it for the 4th time. Encouraged pt to improve diet and try to eat at least 2 meals a day and try to get to 120 lb. She continues to lose weight. Advised her to stop smoking and drinking. Continue meloxicam. Previous serologies: [facility] 06/2020---+ anti ccp, + RF, + anti cardiolipin and + anti c1q. Again advised pt to stop smoking, informed smoking and + anti cardiolipin increases risk of clots. Rt hand US 09/2020 Cont MTX 20 mg PO weekly, folic acid 2 mg daily,prednisone 5 mg daily. Declines flu vaccine. Had shingrix, prevnar 13 and pneumovax. Assessment & Plan (10/11/2021 10:34 AM TRAFFIC POLICE OFFICER): Images from the original note were not included. Flaring up. Does not like injections so will increase her prednisone to 10mg x 7d, 7.5mg x 7 d then back to 5 mg every day. Continue simponi aria and mtx. Quant gold neg 12/2019. Hepatitis panel utd. Will continue mtx. Dr Coates allowed her to continue mtx. She did not do her yearly Cxr again, will re-order it for the 3rd time. Encouraged pt to improve diet and try to eat at least 2 meals a day and try to get to 120 lb. Advised her to stop smoking and drinking. Continue meloxicam. Previous serologies: [facility] 06/2020---+ anti ccp, + RF, + anti cardiolipin and + anti c1q. Again advised pt to stop smoking, informed smoking and + anti cardiolipin increases risk of clots. Rt hand US 09/2020 Cont MTX 20 mg PO weekly, folic acid 2 mg daily,prednisone 5 mg daily. Declines flu vaccine. Had shingrix, prevnar 13 and pneumovax. Assessment & Plan (06/21/2021 9:35 AM TRAFFIC POLICE OFFICER): Images from the original note were not included. Low cdai. Has greatly improved on simponi aria, will continue it. Had her first Simponi Aria infusion on 12/14/2020. She continues to smoke and drink alcohol, advised to stop both. Quant gold neg 12/2019. Hepatitis panel utd. Will continue mtx. Dr Coates allowed her to continue mtx. Check cxr. Encouraged pt to improve diet and try to eat at least 2 meals a day and try to get to 120 lb. Previous serologies: [facility] 06/2020---+ anti ccp, + RF, + anti cardiolipin and + anti c1q. Again advised pt to stop smoking, informed smoking and + anti cardiolipin increases risk of clots. Rt hand US 09/2020 Cont MTX 20 mg PO weekly, folic acid 2 mg daily,prednisone 5 mg daily. Declines flu vaccine. Had shingrix, prevnar 13 and pneumovax. Assessment & Plan (06/11/2021 8:01 AM CDT): Images from the original note were not included. Low cdai. Has greatly improved on simponi aria, will continue it. Seen with Dr Maria today. Had her first Simponi Aria infusion on 12/14/2020. Advised her to discuss the sleep walking with pcp. This is not a SE from her simponi since she had this before starting simponi. Informed her that the hand tremors could be worse due to alcohol use and to stop it but she is not sure she can. Quant gold neg 12/2019. Hepatitis panel utd. Will continue mtx. Dr Coates allowed her to continue mtx. Previous serologies: [facility] 06/2020---+ anti ccp, + RF, + anti cardiolipin and + anti c1q. Again advised pt to stop smoking, informed smoking and + anti cardiolipin increases risk of clots. Rt hand US 09/2020 Cont MTX 20 mg PO weekly, folic acid 2 mg daily,prednisone 5 mg daily. Declines flu vaccine. Had shingrix, prevnar 13 and pneumovax. Assessment & Plan (03/05/2021 11:48 AM CDT): Images from the original note were not included. Low cdai. Has greatly improved on simponi aria, will continue it. Seen with Dr Maria today. Had her first Simponi Aria infusion on 12/14/2020. Advised her to discuss the sleep walking with pcp. This is not a SE from her simponi since she had this before starting simponi. Informed her that the hand tremors could be worse due to alcohol use and to stop it but she is not sure she can. Quant gold neg 12/2019. Hepatitis panel utd. Will continue mtx. Dr Coates allowed her to continue mtx. Previous serologies: [facility] 06/2020---+ anti ccp, + RF, + anti cardiolipin and + anti c1q. Again advised pt to stop smoking, informed smoking and + anti cardiolipin increases risk of clots. Rt hand US 09/2020 Cont MTX 20 mg PO weekly, folic acid 2 mg daily,prednisone 5 mg daily. Declines flu vaccine. Had shingrix, prevnar 13 and pneumovax. Assessment & Plan (01/18/2021 1:46 PM CDT): Images from the original note were not included. Mod cdai, has improved a lot. Had her first Simponi Aria infusion on 12/14/2020. Had no side effects. Quant gold neg 12/2019. Hepatitis panel utd. Will continue mtx. Stop SSZ due to gi upset. Dr Coates allowed her to continue mtx. [facility] 06/2020---+ anti ccp, + RF, + anti cardiolipin and + anti c1q. Again advised pt to stop smoking, informed smoking and + anti cardiolipin increases risk of clots. Rt hand US 09/2020 Cont MTX 20 mg PO weekly, folic acid 2 mg daily, SSZ 1000 mg daily, prednisone 5 mg daily. Declines flu vaccine. Had shingrix, prevnar 13 and pneumovax. Assessment & Plan (11/23/2020 4:59 PM CDT): Images from the original note were not included. High cdai. Recent hand US showed 3 new erosions. Pt again informed that xeljanz is not working and we need to stop it. She is afraid of needles and hates to get infusions or inject herself so in past she has declines injectable meds. Today she is willing to start simponi aria since it is only infused q 2 months. Discussed potential se and risk with simponi aria infusions. Will start approval. Quant gold neg 12/2019. Hepatitis panel utd. Will continue mtx. Dr coates allowed her to continue mtx. Advised her to f/u with him. [facility] 06/2020---+ anti ccp, + RF, + anti cardiolipin and + anti c1q. Again advised pt to stop smoking, informed smoking and + anti cardiolipin increases risk of clots. Rt hand US 09/2020 Cont MTX 20 mg PO weekly, folic acid 2 mg daily, SSZ 1000 mg daily, prednisone 5 mg daily. Declines flu vaccine. Had shingrix, prevnar 13 and pneumovax. Assessment & Plan (06/29/2020 5:29 PM TRAFFIC POLICE OFFICER): Low cdai today. Continues to only eat 2 meals a day to stay thin, informed her again that she is losing weight and needs to increase caloric intake and that she is underweight. Will continue xeljanz and mtx. Dr coates allowed her to continue meds. Cont MTX 20 mg PO weekly, folic acid 2 mg daily, SSZ 1000 mg daily, prednisone 5 mg daily. Declines flu vaccine. Had shingrix, prevnar 13 and pneumovax. Assessment & Plan (03/16/2020 3:10 PM CDT): Mod cdai. Once again not compliant with recommended tx plan. She was advised to see dr coates for her copd and to see if he will allow her to start orencia but he needed to evaluate her and get pft's. Pt has not f/u with him since 01/2019 and was advised 3 mo ago to see him. Will continue xeljanz until she sees dr coates along with her mtx/FA and SSZ. Gave her today again address and phone number for dr coates to make appt. Cont MTX 20 mg PO weekly, folic acid 2 mg daily, SSZ 1000 mg daily, prednisone [address] coates allows us to start orencia, will stop pt's xeljanz a few days before staring orencia. Will need to get her orencia sq with patient assistance first. Assessment & Plan (02/03/2020 5:01 PM CDT): Has history of strong positive RF and anti-ccp antibodies. Still with high disease activity clinically. Other than the hands and feet she denies any other significant joint complaints. She is tolerating SSZ, will check labs and go to 1000mg po every day. F/u in 2 months per pt's request since she can't afford the copay. To get labs in 1 month and f/u in 2 months. Advised her to get her 2nd shingrix vaccine, had only the 1st one 3 months ago. Had a bad case of shingles in past year. Stop xeljanz and will change to orencia sq. Discussed risks and precautions. Will need to get it free of charge for pt, she has poor insurance coverage. Discussed potential se of orencia. Advised her to stop smoking. Saw dr coates in past 6 months for her abn cxr. Not on any inhalers presently. Still smoking. . Cont MTX 20 mg PO weekly, folic acid 2 mg daily, SSZ 1000 mg daily, prednisone 5 mg daily. Stop xeljanz a few days before starting orencia sq. To get 1st inj in the office. Assessment & Plan (01/08/2020 4:03 PM CDT): Has history of strong positive RF and anti-ccp antibodies. Still with high disease activity clinically. Other than the hands and feet she denies any other significant joint complaints. She stopped her SSZ because she felt she was taking too many meds. Not sure she wants to take prolia also because she hates shots. Restart SSZ, f/ in 1 month to recheck labs. Advised to not stop meds. Recommended changing to iv biologic but she declines and does not want to do self injectable biologics due to fear or needles even if they are in a pen. Discussed plaquenil additional control of RA but she declined. Advised her to get her 2nd shingrix vaccine, had only the 1st one 3 months ago. Had a bad case of shingles in past year. Informed her that she is at increased risk of shingles while on xeljanz. Pt wanting to defer any injectable or infusion meds. Due to this our options are limited for additional treatment. Cont xeljanz 11 mg daily, MTX 20 mg PO weekly, folic acid 2 mg daily, SSZ 500 mg daily, prednisone 5 mg daily. Encouraged strongly to stop smoking. F/u in 1 month to recheck labs. Assessment & Plan (09/16/2019 1:15 PM TRAFFIC POLICE OFFICER): Has strong positive RF and anti-ccp antibodies. Still with high disease activity clinically. Other than the hands and feet she denies any other significant joint complaints. She did have to decrease SSZ to 500 mg daily due to GI distress with bid dosing. Got Shingrex recently. Due to burden of disease will give 100mg triamcinolone injection. Discussed plaquenil if symptoms worsen again at next visit for additional control of RA. Handout provided. Pt wanting to defer any injectable or infusion meds. Due to this our options are limited for additional treatment. Can consider addition of HCQ but pt declines starting it. Cont xeljanz 11 mg daily, MTX 20 mg PO weekly, folic acid 2 mg daily, SSZ 500 mg daily, prednisone 5 mg daily. Recent labs last month reviewed. f/u [address] gorman. Assessment & Plan (05/27/2019 3:59 PM CDT): Has strong positive RF and anti-ccp antibodies. Has quite a bit of synovitis over mcp joints R>L on exam today with pain and stiffness. Other than the hands she denies any other significant joint complaints. She did have to decrease SSZ to 500 mg daily due to GI distress with bid dosing. She also stopped her mtx for unknown reason but suspect due to finances. She ran out of xeljanz. Gave pt 3 months of samples. Pt wanting to defer any injectable or infusion meds. Due to this our options are limited for additional treatment. Cont xeljanz 11 mg daily, restart mtx MTX 20 mg PO weekly, folic acid 2 mg daily, SSZ 500 mg daily, prednisone 5 mg daily. Recent labs last month reviewed. f/u 3 months. Assessment & Plan (11/27/2017 12:36 PM CDT): Has strong positive RF and anti-ccp antibodies. Still with high disease activity clinically and recent Vectra last month was 61. [place] much better after triamcinolone IM injection last visit although this only lasted ~2 weeks. Has quite a bit of synovitis over mcp joints R>L on exam today with pain and stiffness. Other than the hands she denies any other significant joint complaints. She did have to decrease SSZ to 500 mg daily due to GI distress with bid dosing. She does feel this has helped her overall stiffness. Otherwise is maintained on xeljanz, MTX, prednisone 5 mg daily. Pt wanting to defer any injectable or infusion meds. Due to this our options are limited for additional treatment. Can consider addition of HCQ as pt denies being on this in the past although after discussing with her will defer at this time as she does not want to be over medicated. Cont xeljanz 11 mg daily, MTX 20 mg PO weekly, folic acid 2 mg daily, SSZ 500 mg daily, prednisone 5 mg daily. Recent labs last month reviewed. f/u 3 months. Assessment & Plan (07/28/2017 11:11 AM TRAFFIC POLICE OFFICER): Moderate disease activity on mtx, xeljanz, ssz and prednisone. Increase ssz to 500mg bid. Labs today. Asked to stop smoking. F/u 1 month, sooner if needed. Assessment & Plan (06/09/2017 11:30 AM CDT): High disease activity on mtx, xeljanz. Has failed other meds. Will start on ssz 500 daily. Asked to stop smoking. Ordered bone density again. Assessment & Plan (02/24/2017 11:36 AM CDT): High disease activity with mtx 20mg weekly, xeljanz 5mg bid and prednisone 10mg daily. Labs today. Has failed enbrel, humira and research infusions but not sure what the infusion was. Declines trying a differnt infusion such as orencia, actemra or rituxan. Will con't with current regimen for now. F/u 3 mos, sooner if needed. Asthma 12/28/2013 Overview (11/18/2016): Asthma Resolved Problems Problem Noted Date Diagnosed Date Resolved Date Abdominal pain 06/30/2023 01/01/2024 Assessment & Plan (06/30/2023 1:06 PM TRAFFIC POLICE OFFICER): Mod to severe epigastric and luq abd pain since she fell 04/24/2023 and hit area with corner of coffee table. Also has hx of gerd. [place] utd last year nl. Check amylase/lipase since pt also consumes alcohol, cmp. Start PPI. Check abd CT w/wo contrast (creat wnl 04/05) and pt is not on metformin, not diabetic. No hx of contrast allergy. F/u in 1 month. Wound discharge 06/30/2023 01/01/2024 Assessment & Plan (06/30/2023 1:07 PM TRAFFIC POLICE OFFICER): Still has a 3-4 mm opening above coccyx. Saw wound mgmt for this. No xray done, will check pelvis xray. Scalp lesion 03/05/2021 01/01/2024 Assessment & Plan (10/14/2022 8:58 AM TRAFFIC POLICE OFFICER): Cxr 09/2020 showed atherosclerosis and chronic blunting of lt costophrenic angle along with interstitial prominence. In past she was advised pt to see Dr Coates because she has not seen him in over 6 months. Advised pt to stop smoking again. Was referred for cxr in February but did not do it. Will re-order Cxr. Assessment & Plan (03/05/2021 11:49 AM CDT): Made patient appt with dr gracia in march to have scalp lesion bx, suspect skin cancer. Check cxr. Dorsalgia 11/23/2020 01/01/2024 Assessment & Plan (06/11/2021 8:03 AM CDT): Continues to have lbp radiating to LE. Has a l5-s1 disc herniation. Was referred to ortho spine and pain mgmt Dr Maurice. Assessment & Plan (03/05/2021 8:07 AM CDT): Continues to have lbp radiating to LE. Has a l5-s1 disc herniation. Was referred to ortho spine and pain mgmt Dr Maurice. Assessment & Plan (01/18/2021 1:50 PM CDT): Continues to have lbp radiating to LE. Suspect l5-s1 disk herniation. Pt does not have knee or ankle reflex rt leg. PT also told pt that most likely she has a disk herniation. We referred her for lumbar mri but her insurance has refused to approve it yet. Has had 4 PT sessions and they have not helped. Xray showed mild lumbar OA. Advised her to see pain mgmt also. Gave her dr go's info but to contact pcp and see if she can get a pain mgmt closer to pt. Recommended she stop working until we find out if she has a disk herniation but she does not want to, states she can't afford to be without her over time pay. Assessment & Plan (11/23/2020 4:57 PM CDT): Having radicular lumbar pain x 1 month. Does a lot of lifting and is osteoporotic. Has hx of lumbar oa from 05/2020 lumbar xray. Will re-xray since pain started a month ago to make sure no compression fx. Start PT. Check lumbar, si and bilat hip xrays. Advised to start PT so we can order lumbar MRI if we need to. Re-evaluate in 1 month. Stp otc ibuprofen and start meloxicam 15 mg po every day, discussed potential gi upset/gi bleed, worsening gerd, to take it with food. Can also use 1 g bid of otc tylenol. Tramadol 50mg tid but to not take it before work or if she has to drive. flexeri 10mg po qhx. Discussed sedation, constipation and nausea with tramadol and sedation with flexeril. Encounters Date Type Department Care Team Description 11/06/[address] [address] Mansoor Cotter Application Approved 10/22/[address] [address] Sharona Javier 10/10/2024 Orders Only [address] [address] Adriana Wyatt PA 10/09/[address] [address] Mansoor Cotter prednisone 09/19/2024 2:30 PM TRAFFIC POLICE OFFICER Office Visit [address] [address] Adriana Wyatt PA Rheumatoid arthritis involving both hands with positive rheumatoid factor (HCC) (Primary Dx); Osteoporosis, unspecified osteoporosis type, unspecified pathological fracture presence; Low vitamin D level; Encounter for long-term (current) use of medications 09/19/[address] [address] Mansoor Cotter 09/19/[address] [address] Adriana Wyatt PA from Last 3 Months Immunizations Immunization Administration Dates Next Due ZOSTER Recombinant 09/03/2019 Surgical History Surgery Date Site/Laterality Comments HYSTERECTOMY Hysterectomy TONSILLECTOMY Tonsillectomy Medical History Medical History Date Comments Hx Other Medical sowmya at 34 yo fo r fibroids Hypertension Asthma Arthritis Family History Medical History Relation Name Comments Diabetes Brother 2 Diabetes mellit us; Other Brother 3 Alive and well; Coronary artery disease Father Darlene nary artery disease; Other Father alcoholic; Diabetes Mother Diabetes mellit us; Other Mother mrsa infection after a pacemak; Relation Name Status Comments Brother 1 Alive Brother 2 Brother 3 Father Mother Social History Tobacco Use Types Packs/Day Years Used Date Smoking Tobacco: Former Cigarettes Smokeless Tobacco: Never Tobacco Cessation:Counseling Given: Not Answered Alcohol Use Standard Drinks/Week Comments Yes 0 (1 standard drink = 0.6 oz pur e alcohol) Comments No Sex and Gender Information Value Date Recorded Sex Assigned at Not on file Legal Sex Female 2:01 AM TRAFFIC POLICE OFFICER Gender Identity Not on file Sexual Orientation Not on file Obstetrics History Last Filed Vital Signs Vital Sign Reading Time Taken Comments Blood Pressure 130/80 09/19/2024 2:19 PM TRAFFIC POLICE OFFICER Pulse 87 09/19/2024 2:19 PM TRAFFIC POLICE OFFICER Temperature 36.5 C (97.7 F) 10/11/2021 10:14 AM TRAFFIC POLICE OFFICER Respiratory Rate 14 06/01/2020 6:19 PM CDT Oxygen Saturation 96% 09/19/2024 2:19 PM TRAFFIC POLICE OFFICER Inhaled Oxygen Concentration - - Weight 49.3 kg (108 lb 9.6 oz) 09/19/2024 2:19 P M TRAFFIC POLICE OFFICER Height 158.8 cm (5' 2.5 ) 09/19/2024 2:19 PM TRAFFIC POLICE OFFICER Body Mass Index 19.55 09/19/2024 2:19 PM TRAFFIC POLICE OFFICER Plan of Treatment Health Maintenance Due Date Last Done Comments Breast Cancer Screening-Mammogram 1959 Colon Cancer Screening-Colonoscopy 1959 Depression Screening 1959 Fall Risk Assessment 1959 DTaP/Tdap/Td Vaccine (1 - Tdap) 1970 Hepatitis B Screening 1977 Pneumococcal vaccine 65+ (1 of 2 - PCV) 1978 Zoster Vaccine (2 of 2) 10/29/2019 09/03/2019 Osteoporosis Screening-Bone Density Scan 03/22/2023 03/22/2021 Well Visit 65+ 02/03/2024 Influenza Vaccine (Season Ended) 2025 05/20/20 16 Hepatitis C Screening Completed 09/05/2012 , 09/05/2012, 09/05/2012, Additional history exists Procedures Procedure Name Priority Date/Time Associated Diagnosis Comments VITAMIN D 25 HYDROXY Routine 09/19/2024 3:14 PM TRA[employer]IC [employer]ICE OFFICER COMPREHENSIVE METABOLIC PANEL Routine 09/19/2024 3:14 PM TRAFFIC [employer]ICE OFFICER Rheumatoid arthritis involving both hands with positive rheumatoid factor (HCC) Osteoporosis, unspecified osteoporosis type, unspecified pathological fracture presence Low vitamin D level Encounter for long-term (current) use of medications CRP (ACUTE PHASE) Routine 09/19/2024 3:1 4 PM TRAFFIC POLICE OFFICER Rheumatoid arthritis involving both hands with positive rheumatoid factor (HCC) Osteoporosis, unspecified osteoporosis type, unspecified pathological fracture presence Low vitamin D level Encounter for long-term (current) use of medications CBC WITH AUTO DIFFERENTIAL Routine 09/19/2024 3:14 PM TRAFFIC POLICE OFFICER Rheumatoid arthritis involving both hands with positive rheumatoid factor (HCC) Osteoporosis, unspecified osteoporosis type, unspecified pathological fracture presence Low vitamin D level Encounter for long-term (current) use of medications ERYTHROCYTE SEDIMENTATION RATE Routine 09/19/2024 3:14 PM TRAFFIC POLICE OFFICER Rheumatoid arthritis involving both hands with positive rheumatoid factor (HCC) Osteoporosis, unspecified osteoporosis type, unspecified pathological fracture presence Low vitamin D level Encounter for long-term (current) use of medications HEPATITIS PANEL, ACUTE Routine 09/05/2012 10:05 AM TRAFFIC POLICE OFFICER from Last 3 Months or Most Recently Relevant to Health Maintenance Results * (ABNORMAL) CBC with auto differential (09/19/2024 3:14 PM TRAFFIC POLICE OFFICER) WBC 5.1 3.8 - 10.8 Thousand/u L [facility] RBC, POC 4.14 3.80 - 5.10 Million/uL [facility] Hgb 14.3 11.7 - 15.5 g/dL [facility] Hct 41.5 35.0 - 45.0 % [facility] MCV 100.2(H) 80.0 - 100.0 fL [facility] MCH 34.5(H) 27.0 - 33.0 pg [facility] MCHC 34.5 32.0 - 36.0 g/dL [facility] Comment: For adults, a slight decrease in the calculated MCHC value (in the range of 30 to 32 g/dL) is most likely not clinically significant; however, it should be interpreted with caution in correlation with other red cell parameters and the patient's clinical condition. Rdw 13.0 11.0 - 15.0 % [facility] Platelets 276 140 - 400 Thousand/u L [facility] MPV 10.8 7.5 - 12.5 fL [facility] Neutrophils, abs 2,254 1,500 - 7,800 cells/uL [facility] Lymphocytes, abs 2,254 850 - 3,900 cells/uL [facility] Monocyte abs 479 200 - 950 cells/uL [facility] Eosinophils, abs 92 15 - 500 cells/uL [facility] Basophils, abs 20 0 - 200 cells/uL [facility] Neutrophils 44.2 % [facility] Lymphocyte pct 44.2 % [facility] Monocytes 9.4 % [facility] Eosinophils 1.8 % [facility] Basophils 0.4 % [facility] Blood 09/19/2024 3:14 PM TRAFFIC POLICE OFFICER 09/19/2024 3:15 PM TRAFFIC POLICE OFFICER Adriana OCHOA LAB BLOOD ORDERAB LES Final Result [facility] [address] [place] [address] * Vitamin D 25 hydroxy (09/19/2024 3:14 PM TRAFFIC POLICE OFFICER) Pathologist [facility] Vitamin D 25-OH 32 30 - 100 ng/mL [facility] Comment: Vitamin D Status 25-OH Vitamin D: Deficiency: <20 ng/mL Insufficiency: 20 - 29 ng/mL Optimal: > or = 30 ng/mL For 25-OH Vitamin D testing on patients on D2-supplementation and patients for whom quantitation of D2 and D3 fractions is required, the QuestAssureD(TM) 25-OH VIT D, (D2,D3), LC/MS/MS is recommended: order code 88169 (patients >2yrs). See Note 1 Note 1 For additional information, please refer to http://education.Saberr/faq/APJ787 (This link is being provided for informational/ educational purposes only.) 09/19/2024 3:14 PM TRAFFIC POLICE OFFICER 09/19/2024 3:15 PM TRAFFIC POLICE OFFICER Adriana OCHOA LAB BLOOD ORDERAB LES Final Result [facility] [address] [place] [address] * Erythrocyte sedimentation rate (09/19/2024 3:14 PM TRAFFIC POLICE OFFICER) Pathologist [facility] Erythrocyte sedimentation rate 9 < OR = 30 mm/h [facility] Blood 09/19/2024 3:14 PM TRAFFIC POLICE OFFICER 09/19/2024 3:15 PM TRAFFIC POLICE OFFICER Adriana OCHOA LAB BLOOD ORDERAB LES Final Result Performing Organization Address [facility] Co de Phone Number [facility] [address] [place] [address] * CRP (acute phase) (09/19/2024 3:14 PM TRAFFIC POLICE OFFICER) Pathologist [facility] C-RP 4.2 <8.0 mg/L [facility] Blood 09/19/2024 3:14 PM TRAFFIC POLICE OFFICER 09/19/2024 3:15 PM TRAFFIC POLICE OFFICER Adriana Paola Wyatt [place] LAB BLOOD ORDERAB LES Final Result Performing Organization Address [facility] Co de Phone Number [facility] [address] [place] [address] * Comprehensive metabolic panel (09/19/2024 3:14 PM TRAFFIC POLICE OFFICER) Glucose 85 65 - 99 mg/dL [facility] Comment: Fasting reference interval BUN 9 7 - 25 mg/dL [facility] Creatinine 0.67 0.50 - 1.05 mg/dL [facility] eGFR 97 > OR = 60 mL/min/1.7 3m2 [facility] BUN/creat ratio SEE NOTE: 6 - 22 (calc) [facility] Comment: Not Reported: BUN and Creatinine are within reference range. Sodium 140 135 - 146 mmol/L [facility] Potassium, pl 4.9 3.5 - 5.3 mmol/L [facility] Chloride 103 98 - 110 mmol/L [facility] CO2 28 20 - 32 mmol/L [facility] Calcium 9.3 8.6 - 10.4 mg/dL [facility] Protein, sr 6.6 6.1 - 8.1 g/dL [facility] Albumin 3.9 3.6 - 5.1 g/dL [facility] GLOBULIN 2.7 1.9 - 3.7 g/dL (calc) [facility] Alb/glob ratio 1.4 1.0 - 2.5 (calc) [facility] Bilirubin, total 0.3 0.2 - 1.2 mg/dL [facility] Alk phos 52 37 - 153 U/L [facility] AST 33 10 - 35 U/L [facility] ALT (SGPT) 27 6 - 29 U/L [facility] Blood 09/19/2024 3:14 PM TRAFFIC POLICE OFFICER 09/19/2024 3:15 PM TRAFFIC POLICE OFFICER us Adriana OCHOA LAB BLOOD ORDERAB LES Final Result [facility] [address] [address] * Hepatitis panel, acute (09/05/2012 10:05 AM TRAFFIC POLICE OFFICER) Hep A IgM NON-REACT KAL NON-REACT KAL [facility]OR[facility] RESULTS Comment: [facility] [address] [address] Director: JAIMEE BRIGGS DO,MPH 09/05/2012 10:0 5 AM TRAFFIC POLICE OFFICER us Ry Mccann MD LAB MICROBIOLOGY - GENERAL ORDER MANNY Final Result [facility] HISTORICAL RESULTS from Last 3 Months or Most Recently Relevant to Health Maintenance Insurance [facility] CHOICE PLUS [facility] OPEN ACCESS [facility] [employer]AN Care Teams Patient Educator Relationship Specialty Start Date End Date Bassam Blackman MD PCP - General 11/11/16 Elsa Maurice MD Referring Physician Pain Management 01/19/21 Molly Osorio MD [address] [place] [address] Referring Physician Dermatology 11/02/21 Tigre Madison MD [address] [facility] [address] [place] [address] Pulmonary Disease 11/21/22 John Gorman MD [address] [place] [address] Consulting Physician Rheumatology 07/19/23 [place] [address] [facility] [address] [place] [address] Consulting Physician Gastroenterology 09/18/23
--- OUTSIDE RECORDS SUMMARY | 2024-12-09 14:06 | XMS_ITS | Clinical Summary ---
Author Organization [facility] Address [address] [place] [address] Care Team Providers Care Family Manager Name Role Phone Bassam Blackman MD Primary Care Provider [phone] Allergies No known active allergies Medications traMADol 50 MG tablet 1 Active metoprolol succinate ER 100 MG 24 hr tablet Take 100 mg by mouth daily. 1 Active methotrexate 2.5 MG tablet methotrexate sodium 2.5 mg tablet TAKE 6 TABLETS BY MOUTH EVERY 7 DAYS 1 Active ipratropium-al buterol 0.5-2.5 (3) MG/3ML Solution ipratropium 0.5 mg-albuterol 3 mg (2.5 mg base)/3 mL nebulization soln INHALE 1 VIAL VIA NEBULIZER 4 TIMES DAILY Active golimumab 50 MG/4ML injection Inject 86.25 mg into the vein. 1 Active folic acid 1 MG tablet 1 Active cyclobenzaprin e 10 MG tablet Take 10 mg by mouth daily. 1 Active vitamin D2, ergocalciferol , (VITAMIN D, ERGOCALCIFEROL ,) 66912 UNITS capsule ergocalciferol (vitamin D2) 1,250 mcg (50,000 unit) capsule TAKE 1 CAPSULE BY MOUTH ONE TIME PER WEEK 1 Active fluticasone furoate-vilant florentino 100-25 MCG/INH inhaler Inhale 1 puff into the lungs daily. Active fluticasone propionate (FLOVENT HFA) 220 MCG/ACT inhaler Flovent HFA 220 mcg/actuation aerosol inhaler TAKE 2 PUFFS BY MOUTH TWICE A DAY Active TRELEGY 100-62.5-25 MCG/INH AEROSOL POWDER, BREATH ACTIVATED Inhale 1 puff into the lungs daily. 0 Active albuterol (2.5 MG/3ML) 0.083% nebulizer solution albuterol sulfate 2.5 mg/3 mL (0.083 %) solution for nebulization INHALE 1 VIAL VIA NEBULIZER 4 TIMES A DAY NEEDED Active VENTOLIN HFA 108 (90 Base) MCG/ACT inhaler Inhale 2 puffs into the lungs every 4 (four) hours as needed. 1 Active Flurbiprofen 100 MG Tab flurbiprofen 100 mg tablet TAKE 1 TABLET TWICE A DAY NEEDED Active predniSONE 5 mg tablet 1 Active traZODone 50 MG tablet Take 50 mg by mouth nightly at bedtime. 1 Active losartan 25 MG tablet Take 25 mg by mouth daily. 1 Active escitalopram 10 MG tablet Take 10 mg by mouth daily. 1 Active Active Problems Problem Noted Date Diagnosed Date Lumbar radiculopathy 03/08/2021 Overview (03/08/2021): Added automatically from request for surgery [id number] Family History Medical History Relation Comments Heart Disease Father Diabetes Mother Relation Status Comments Father Mother Social History Tobacco Use Types Packs/Day Years Used Date Smoking Tobacco: Every Day Cigarettes Smokeless Tobacco: Never Comments:Actively cutting do wn has gone from 1 PPD to 1/2 PPD Alcohol Use Standard Drinks/Week Comments Yes 0 (1 standard drink = 0.6 oz pur e alcohol) SOICAL CONSUMPTION Comments No Sex and Gender Information Value Date Recorded Sex Assigned at Not on file Legal Sex Female 7:28 AM CDT Gender Identity Not on file Sexual Orientation Not on file 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 Not on file Not on file Last Filed Vital Signs Vital Sign Reading Time Taken Comments Blood Pressure 149/85 04/26/2021 11:27 AM CDT Pulse 76 04/26/2021 11:27 AM CDT Temperature 36.3 C (97.4 F) 04/26/2021 10:37 AM CDT Respiratory Rate 18 04/26/2021 11:27 AM CDT Oxygen Saturation 98% 04/26/2021 11:27 AM CDT Inhaled Oxygen Concentration - - Weight 42.2 kg (93 lb) 04/26/2021 10:37 AM CDT Height 160 cm (5' 3 ) 04/26/2021 10:37 AM CDT Body Mass Index 16.47 04/26/2021 10:37 AM CDT Plan of Treatment Health Maintenance Due Date Last Done Comments Colorectal Cancer Screening Colonoscopy (10 Years) 1959 Hepatitis C 1977 DTaP, Tdap and Td Vaccines ( 1 - Tdap) 1978 Pneumococcal Vaccine: 50+ Years (1 of 2 - PCV) 1978 Mammogram Screening 1999 Zoster Vaccines (2 of 2) 10/29/2019 020, 09/03/2019 Dexa Scan (General) 02/03/2024 COVID-19 Vaccine (1 - 2023-2 5 season) 2024 RSV Immunization or 60+ Years (1 - 1-dose 75+ series) 2034 Meningococcal B Vaccine Aged Out No l onger eligible based on patient's age to complete this topic Meningococcal Vaccine Aged Out No jamil marian eligible based on patient's age to complete this topic RSV Immunizations Under 20 Months Aged Out No longer eligible b ased on patient's age to complete this topic Insurance [facility] [address] Care Teams Family Manager Relationship Specialty Start Date End Date Bassam Blackman MD PCP - General INTERNAL MEDICINE 03/08/21
--- OUTSIDE RECORDS SUMMARY | 2024-12-09 14:07 | XMS_ITS | Clinical Summary ---
Author Organization [facility] Address [address] [place] [address] Care Team Providers Care Chief Estimator Name Role Phone Unavailable Primary Care Provider Unavailabl e Encounters Date Type Department Care Team Description 10/30/2024 External Device Data [facility] ABSTRACTION Provider, Abstract 10/19/2024 External Device Data [facility] ABSTRACTION Provider, Abstract 10/16/2024 External Device Data [facility] ABSTRACTION Provider, Abstract 10/02/2024 External Device Data [facility] ABSTRACTION Provider, Abstract 10/02/2024 External Device Data [facility] ABSTRACTION Provider, Abstract from Last 3 Months Social History Tobacco Use Types Packs/Day Years Used Date Smoking Tobacco: Never Assessed Comments Unknown Sex and Gender Information Value Date Recorded Sex Assigned at Not on file Legal Sex Female 6:52 PM SYSTEMS INTEGRATION MANAGER Gender Identity Not on file Sexual Orientation Not on file Plan of Treatment Health Maintenance Due Date Last Done Comments DTAP/TDAP/TD VACCINES (1 - Tdap) 1978 PNEUMOCOCCAL VACCINE 50+ YEARS (1 of 2 - PCV) 02/02/19 78 BREAST CANCER SCREENING 1999 COLORECTAL SCREENING 02/03/2004 Colorectal Cancer Screening 02/03/2004 FIT-DNA Q 3 years 02/03/2004 FIT/FOBT Q 1 year 02/03/2004 Flex Sig/CT Colonography Q 5 years 02/03/2004 RSV VACCINE (60+ or ) (1 - Risk 60-74 years 1-dose series) 2019 ZOSTER VACCINE (2 of 2) 10/29/2019 09/03/2019 INFLUENZA VACCINE (#1) 2024 05/20/2016 OSTEOPOROSIS SCREENING 03/22/2026 03/22/[address] [place] [id number]
--- OUTSIDE RECORDS SUMMARY | 2024-12-09 14:07 | XMS_ITS | Referral Summary ---
Author Organization [facility] [address] [facility] Address [address] [place] [address] Phone Care Team Providers Care Retail Assistant Store Manager Name Role Phone Bassam Blackman MD Primary Care Provider Elsa Maurice MD Unavailable [phone] Molly Osorio MD Unavailable [phone] Tigre Madison MD Unavailable John Gorman MD Unavailable [phone] Aditi Eckert MD Unavailable [phone] Encounters Date Type Department Care Team Description 11/06/[address] [phone] Mansoor Cotter Application Approved 10/22/[address] [phone] Shaorna Javier Relizzie 10/10/2024 Orders Only [facility] [address] [place] [phone] Adriana Wyatt PA 10/09/[address] [phone] Mansoor Cotter prednisone 09/19/2024 Telephone [facility] [address] [place] [phone] Mansoor Cotter 09/19/2024 Telephone [facility] [address] [place] [address] Adriana Wyatt PA 09/19/2024 2:30 PM PHYSICIAN EXTENDER Office Visit [facility] [address] [place] [address] Adriana Wyatt PA Rheumatoid arthritis involving both hands with positive rheumatoid factor (HCC) (Primary Dx); Osteoporosis, unspecified osteoporosis type, unspecified pathological fracture presence; Low vitamin D level; Encounter for long-term (current) use of medications from Last 3 Months Allergies No known active allergies Medications calcium [...] today. Assessment & Plan (09/18/2023 1:59 PM PHYSICIAN EXTENDER): Was anemic in June and she ended [...] 06/21/2021 Assessment & Plan (06/21/2021 9:35 AM PHYSICIAN EXTENDER): Hx of hyperlipidemia, per pt pcp is [...] 01/14/2019 Assessment & Plan (10/14/2022 8:57 AM PHYSICIAN EXTENDER): Images from the original note were not included. Hx of copd. Repeat cxr 12/2021 stable. Advised pt to stop smoking and f/u with dr coates her pulm. Cxr 12/2021: Assessment & Plan (06/21/2021 7:42 AM PHYSICIAN EXTENDER): Cxr 09/2020 showed atherosclerosis and chronic blunting [...] again. Assessment & Plan (09/16/2019 7:39 AM PHYSICIAN EXTENDER): Cxr 06/01 showed atherosclerosis and chronic blunting of lt costophrenic angle. Advised pt to see dr coates. Advised pt to stop smoking again. Stress 01/14/2019 Low vitamin D level 03/05/2018 Assessment & Plan (09/19/2024 8:30 AM PHYSICIAN EXTENDER): Vitamin D wnl 45 on 03/2024 labs. [...] today. Assessment & Plan (09/18/2023 7:46 AM PHYSICIAN EXTENDER): Vitamin D 22 on 06/2023 On Rx vit d 50,000u po qweek. Will recheck vit d today. Assessment & Plan (08/28/2023 8:30 AM PHYSICIAN EXTENDER): Vitamin D 25 in February. On Rx vit d 50,000u po qweek. Will recheck vit d today. Assessment & Plan (06/30/2023 8:06 AM PHYSICIAN EXTENDER): Vitamin D 25 in February. On Rx vit d 50,000u po qweek. Will recheck vit d today. Assessment & Plan (07/18/2022 10:31 AM PHYSICIAN EXTENDER): Vitamin D 25 in February. On Rx [...] d. Assessment & Plan (06/29/2020 1:04 PM PHYSICIAN EXTENDER): Vit D at goal at 50 on [...] inj. Assessment & Plan (09/16/2019 7:37 AM PHYSICIAN EXTENDER): Vit d at goal at last visit. [...] (06/29/2020): Assessment & Plan (09/19/2024 8:20 AM PHYSICIAN EXTENDER): Negative hepatitis 07/28. Quant gold neg 12/2019 BDS 69585---aps T score -3.3 Cxr 05/2019 [facility] 06/2020---+ [...] hepatitis 07/28. Quant gold neg 12/2019 BDS 21160---wcc T score -3.3 Cxr 05/2019 [facility] 06/2020---+ [...] hepatitis 07/28. Quant gold neg 12/2019 BDS 90560---tyd T score -3.3 Cxr 05/2019 [facility] 06/2020---+ [...] Plan (01/01/2024 8:33 AM CDT): Negative hepatitis 07/28. Quant gold neg 12/2019 BDS 02913---fwp T score -3.3 Cxr 05/2019 [facility] 06/2020---+ anti ccp, + RF, + anti cardiolipin and + anti c1q. Failed xeljanz, humira, enbrel. BDS 03/2023---lt hip t score -3.8/rt hip -3.2. lumbar spine T score -2.5 consistent with osteoporosis. Assessment & Plan (09/18/2023 7:46 AM PHYSICIAN EXTENDER): Negative hepatitis 07/28. Quant gold neg 12/2019 BDS 72862---fog T score -3.3 Cxr 05/2019 Avise 06/2020---+ anti ccp, + RF, + anti cardiolipin and + anti c1q. Failed xeljanz, humira, enbrel. BDS 03/2023---lt hip t score -3.8/rt hip -3.2. lumbar spine T score -2.5 consistent with osteoporosis. Assessment & Plan (08/28/2023 8:34 AM PHYSICIAN EXTENDER): Negative hepatitis 12/15. Quant gold neg 12/2019 BDS 27073---byz T score -3.3 Cxr 05/2019 [facility]ise 06/2020---+ anti ccp, + RF, + anti cardiolipin and + anti c1q. Failed xeljanz, humira, enbrel. BDS 03/2023---lt hip t score -3.8/rt hip -3.2. lumbar spine T score -2.5 consistent with osteoporosis. Assessment & Plan (06/30/2023 8:06 AM PHYSICIAN EXTENDER): Negative hepatitis 12/15. Quant gold neg 12/2019 BDS 59570---zne T score -3.3 Cxr 05/2019 Avise 06/2020---+ anti ccp, + RF, + anti cardiolipin and + anti c1q. Failed xeljanz, humira, Prolia on . Assessment & Plan (03/24/2023 8:06 AM CDT): Negative hepatitis 12/15. Quant gold neg 12/2019 BDS 18049---evb T score -3.3 Cxr 05/2019 Avise 06/2020---+ anti ccp, + RF, + anti cardiolipin and + anti c1q. Failed xeljanz, humira, Prolia on . Assessment & Plan (11/21/2022 8:27 AM CDT): Negative hepatitis 12/15. Quant gold neg 12/2019 BDS 55372---vlv T score -3.3 Cxr 05/2019 Avise 06/2020---+ anti ccp, + RF, + anti cardiolipin and + anti c1q. Failed xeljanz, humira, Prolia on 12/14/2020. Assessment & Plan (07/18/2022 8:03 AM PHYSICIAN EXTENDER): Negative hepatitis 12/15. Quant gold neg 12/2019 BDS 98508---mxe T score -3.3 Cxr 05/2019 Avise 06/2020---+ anti ccp, + RF, + anti cardiolipin and + anti c1q. Failed xeljanz, humira, Prolia on 12/14/2020. Assessment & Plan (12/31/2021 2:34 PM CDT): Negative hepatitis 12/15. Quant gold neg 12/2019 BDS 59093---nqn T score -3.3 Cxr 05/2019 Avise 06/2020---+ anti ccp, + RF, + anti cardiolipin and + anti c1q. Failed xeljanz, humira, Prolia on 12/14/2020. Assessment & Plan (10/07/2021 10:48 AM PHYSICIAN EXTENDER): Negative hepatitis 12/15. Quant gold neg 12/2019 BDS 75506---fin T score -3.3 Cxr 05/2019 Avise 06/2020---+ anti ccp, + RF, + anti cardiolipin and + anti c1q. Failed xeljanz, humira, Prolia on 12/14/2020. Assessment & Plan (06/21/2021 7:39 AM PHYSICIAN EXTENDER): Negative hepatitis 12/15. Quant gold neg 12/2019 BDS 30049---bxs T score -3.3 Cxr 05/2019 Avise 06/2020---+ anti ccp, + RF, + anti cardiolipin and + anti c1q. Failed xeljanz, humira, Prolia on 12/14/2020. Assessment & Plan (06/11/2021 8:03 AM CDT): Negative hepatitis 12/15. Quant gold neg 12/2019 BDS 25696---qgh T score -3.3 Cxr 05/2019 Avise 06/2020---+ anti ccp, + RF, + anti cardiolipin and + anti c1q. Failed xeljanz, humira, Prolia on 12/14/2020. Assessment & Plan (03/05/2021 8:04 AM CDT): Negative hepatitis 12/15. Quant gold neg 12/2019 BDS 51529---vjd T score -3.3 Cxr 05/2019 Avise 06/2020---+ anti ccp, + RF, + anti cardiolipin and + anti c1q. Failed xeljanz, humira, Prolia on 12/14/2020. Assessment & Plan (01/18/2021 8:32 AM CDT): Negative hepatitis 12/15. Quant gold neg 12/2019 BDS 75988---xpy T score -3.3 Cxr 05/2019 Avise 06/2020---+ anti ccp, + RF, + anti cardiolipin and + anti c1q. Failed xeljanz, humira, Prolia on 12/14/2020. Assessment & Plan (11/23/2020 4:13 PM CDT): Negative hepatitis 12/15. Quant gold neg 12/2019 BDS 66646---fzh T score -3.3 Cxr 05/2019 Avise 06/2020---+ anti ccp, + RF, + anti cardiolipin and + anti c1q. Failed xeljanz, humira, Assessment & Plan (06/29/2020 1:04 PM PHYSICIAN EXTENDER): Negative hepatitis 12/15. Quant gold neg 12/2019 BDS 49422---nci T score -3.3 Cxr 05/2019 Assessment & Plan (03/12/2020 11:48 AM CDT): Negative hepatitis 12/15. Quant gold neg 12/2019 BDS 48318---rnh T score -3.3 Cxr 05/2019 Assessment & Plan (02/03/2020 8:26 AM CDT): Negative hepatitis 12/15. Quant gold neg 12/2019 BDS 28699---fng T score -3.3 Cxr 05/2019 Assessment & Plan (01/08/2020 8:08 AM CDT): Negative hepatitis 12/15. Quant gold neg 09/2018 BDS 60131---kmd T score -3.3 Cxr 05/2019 Assessment & Plan (09/16/2019 7:36 AM PHYSICIAN EXTENDER): Negative hepatitis 12/15. Quant gold neg 09/2018 Assessment & Plan (05/24/2019 8:09 AM CDT): Negative hepatitis 12/15. neg quant gold 04/29, repeat today. Assessment & Plan (07/28/2017 11:13 AM PHYSICIAN EXTENDER): Negative hepatitis 12/15. neg quant gold 04/29, repeat today. Assessment & Plan (02/24/2017 11:24 AM CDT): Negative hepatitis 12/15, neg quant gold 04/29. Osteoporosis 02/24/2017 Assessment & Plan (09/19/2024 8:32 AM PHYSICIAN EXTENDER): BDS 03/2023---lt hip t score -3.8/rt hip [...] BDS. Assessment & Plan (09/18/2023 7:46 AM PHYSICIAN EXTENDER): BDS 03/2023---lt hip t score -3.8/rt hip -3.2. lumbar spine T score -2.5 consistent with osteoporosis. Pt had Prolia on 07/17/2023. Is due again 01/2024, check vitamin d. Check BDS. Assessment & Plan (08/28/2023 8:34 AM PHYSICIAN EXTENDER): BDS 03/2023---lt hip t score -3.8/rt hip -3.2. lumbar spine T score -2.5 consistent with osteoporosis. Pt had Prolia on 07/17/2023. Is due again 01/2024, check vitamin d. Check BDS. Assessment & Plan (06/30/2023 1:05 PM PHYSICIAN EXTENDER): Per most recent DXA 07/02 showed hip [...] approval. Assessment & Plan (07/18/2022 8:05 AM PHYSICIAN EXTENDER): Per most recent DXA 07/02 showed hip [...] d. Assessment & Plan (10/11/2021 8:53 AM PHYSICIAN EXTENDER): Per most recent DXA 07/02 showed hip T score -3.3. Informed again she is at high risk of fracture. Alendronate was stopped in past, she had been on it for 5 yrs. Pt had Prolia on . She is due again 12/2021. Assessment & Plan (06/21/2021 7:41 AM PHYSICIAN EXTENDER): Per most recent DXA 07/02 showed hip [...] 08/05/2020. Assessment & Plan (06/29/2020 1:04 PM PHYSICIAN EXTENDER): Per most recent DXA 07/02 showed hip [...] again. Assessment & Plan (09/16/2019 7:37 AM PHYSICIAN EXTENDER): Per most recent DXA (06/23/17) with T [...] exercises. Assessment & Plan (07/28/2017 11:11 AM PHYSICIAN EXTENDER): On alendronate. bmd shows osteoporosis but is [...] 09/02 Assessment & Plan (09/19/2024 3:47 PM PHYSICIAN EXTENDER): Low cdai, on rinvoq x 4 months. [...] today. Assessment & Plan (09/18/2023 2:02 PM PHYSICIAN EXTENDER): Low cdai. Has improved since she restarted [...] EtOH. Assessment & Plan (08/28/2023 8:30 AM PHYSICIAN EXTENDER): High cdai. Flaring up, most likely due to stopping mtx. Restart mtx 15 mg po qweek and FA 1 mg po every day. Continue simponi aria. Today due to burden of dz will give her 80mg of triamcinolone IM today, discussed risks and se of systemic steroids. Check labs today. 30 min spent with pt today. Assessment & Plan (06/30/2023 1:07 PM PHYSICIAN EXTENDER): High cdai. Flaring up, most likely due [...] present meds. She wanted to go to [facility] but then changed her mind and restarted her simponi aria infusions again. Continue mtx. Quant gold neg 12/2019. Hepatitis panel utd. Will continue mtx. She is seeing a pulm in [place] now. He told her she has some [...] mtx. She is seeing a pulm in [place] now. He told her she has some CAD, pt still smokes, advised her to stop smoking and f/u with pcp or firefighting equipment specialist for her CAD. Assessment & Plan (07/18/2022 12:46 PM PHYSICIAN EXTENDER): Images from the original note were not [...] pneumovax. Assessment & Plan (10/11/2021 10:34 AM PHYSICIAN EXTENDER): Images from the original note were not [...] pneumovax. Assessment & Plan (06/21/2021 9:35 AM PHYSICIAN EXTENDER): Images from the original note were not [...] pneumovax. Assessment & Plan (06/29/2020 5:29 PM PHYSICIAN EXTENDER): Low cdai today. Continues to only eat [...] labs. Assessment & Plan (09/16/2019 1:15 PM PHYSICIAN EXTENDER): Has strong positive RF and anti-ccp antibodies. [...] and recent Vectra last month was 61. [place] much better after triamcinolone IM injection last [...] months. Assessment & Plan (07/28/2017 11:11 AM PHYSICIAN EXTENDER): Moderate disease activity on mtx, xeljanz, ssz [...] 01/01/2024 Assessment & Plan (06/30/2023 1:06 PM PHYSICIAN EXTENDER): Mod to severe epigastric and luq abd pain since she fell 04/24/2023 and hit area with corner of coffee table. Also has hx of gerd. Vancleve utd last year nl. Check amylase/lipase since pt also consumes alcohol, cmp. Start PPI. Check abd CT w/wo contrast (creat wnl 04/05) and pt is not on metformin, not diabetic. No hx of contrast allergy. F/u in 1 month. Wound discharge 06/30/2023 01/01/2024 Assessment & Plan (06/30/2023 1:07 PM PHYSICIAN EXTENDER): Still has a 3-4 mm opening above coccyx. Saw wound mgmt for this. No xray done, will check pelvis xray. Scalp lesion 03/05/2021 01/01/2024 Assessment & Plan (10/14/2022 8:58 AM PHYSICIAN EXTENDER): Cxr 09/2020 showed atherosclerosis and chronic blunting [...] nausea with tramadol and sedation with flexeril. Immunizations Immunization Administration Dates Next Due ZOSTER Recombinant 09/03/2019 Social History Tobacco Use Types Packs/Day Years Used Date Smoking Tobacco: Former Cigarettes Smokeless Tobacco: Never Tobacco Cessation:Counseling Given: Not Answered Alcohol Use Standard Drinks/Week Comments Yes 0 (1 standard drink = 0.6 oz pur e alcohol) Comments No Sex and Gender Information Value Date Recorded Sex Assigned at Not on file Legal Sex Female 2:01 AM PHYSICIAN EXTENDER Gender Identity Not on file Sexual Orientation Not on file Last Filed Vital Signs Vital Sign Reading Time Taken Comments Blood Pressure 130/80 09/19/2024 2:19 PM PHYSICIAN EXTENDER Pulse 87 09/19/2024 2:19 PM PHYSICIAN EXTENDER Temperature 36.5 C (97.7 F) 10/11/2021 10:14 AM PHYSICIAN EXTENDER Respiratory Rate 14 06/01/2020 6:19 PM CDT Oxygen Saturation 96% 09/19/2024 2:19 PM PHYSICIAN EXTENDER Inhaled Oxygen Concentration - - Weight 49.3 kg (108 lb 9.6 oz) 09/19/2024 2:19 P M PHYSICIAN EXTENDER Height 158.8 cm (5' 2.5 ) 09/19/2024 2:19 PM PHYSICIAN EXTENDER Body Mass Index 19.55 09/19/2024 2:19 PM PHYSICIAN EXTENDER Plan of Treatment Not on file Procedures Procedure Name Priority Date/Time Associated Diagnosis Comments VITAMIN D 25 HYDROXY Routine 09/19/2024 3:14 PM PHYSICIAN EXTENDER COMPREHENSIVE METABOLIC PANEL Routine 09/19/2024 3:14 PM PHYSICIAN EXTENDER Rheumatoid arthritis involving both hands with positive rheumatoid factor (HCC) Osteoporosis, unspecified osteoporosis type, unspecified pathological fracture presence Low vitamin D level Encounter for long-term (current) use of medications CRP (ACUTE PHASE) Routine 09/19/2024 3:1 4 PM PHYSICIAN EXTENDER Rheumatoid arthritis involving both hands with positive rheumatoid factor (HCC) Osteoporosis, unspecified osteoporosis type, unspecified pathological fracture presence Low vitamin D level Encounter for long-term (current) use of medications CBC WITH AUTO DIFFERENTIAL Routine 09/19/2024 3:14 PM PHYSICIAN EXTENDER Rheumatoid arthritis involving both hands with positive rheumatoid factor (HCC) Osteoporosis, unspecified osteoporosis type, unspecified pathological fracture presence Low vitamin D level Encounter for long-term (current) use of medications ERYTHROCYTE SEDIMENTATION RATE Routine 09/19/2024 3:14 PM PHYSICIAN EXTENDER Rheumatoid arthritis involving both hands with positive rheumatoid factor (HCC) Osteoporosis, unspecified osteoporosis type, unspecified pathological fracture presence Low vitamin D level Encounter for long-term (current) use of medications HEPATITIS PANEL, ACUTE Routine 09/05/2012 10:05 AM PHYSICIAN EXTENDER from Last 3 Months or Most Recently Relevant to Health Maintenance Results * (ABNORMAL) CBC with auto differential (09/19/2024 3:14 PM PHYSICIAN EXTENDER) WBC 5.1 3.8 - 10.8 Thousand/u L [...] [facility] Blood 09/19/2024 3:14 PM PHYSICIAN EXTENDER 09/19/2024 3:15 PM PHYSICIAN EXTENDER Adriana OCHOA LAB BLOOD ORDERAB LES Final Result Performing Organization Address [facility] Co de Phone Number [facility] [address] [place] [address] * Vitamin D 25 hydroxy (09/19/2024 3:14 PM PHYSICIAN EXTENDER) Vitamin D 25-OH 32 30 - 100 ng/mL [facility] Comment: Vitamin D Status 25-OH Vitamin D: Deficiency: <20 ng/mL Insufficiency: 20 - 29 ng/mL Optimal: > or = 30 ng/mL For 25-OH Vitamin D testing on patients on D2-supplementation and patients for whom quantitation of D2 and D3 fractions is required, the [facility](TM) 25-OH VIT D, (D2,D3), LC/MS/MS is recommended: order code 83132 (patients >2yrs). See Note 1 Note 1 For additional information, please refer to http://education.Citrus/faq/KYL363 (This link is being provided for informational/ educational purposes only.) 09/19/2024 3:14 PM PHYSICIAN EXTENDER 09/19/2024 3:15 PM PHYSICIAN EXTENDER Adriana OCHOA LAB BLOOD ORDERAB LES Final Result Performing Organization Address [facility] Co de Phone Number [facility] [address] [place] [address] * Erythrocyte sedimentation rate (09/19/2024 3:14 PM PHYSICIAN EXTENDER) Erythrocyte sedimentation rate 9 < OR = 30 mm/h [facility] Blood 09/19/2024 3:14 PM PHYSICIAN EXTENDER 09/19/2024 3:15 PM PHYSICIAN EXTENDER Adriana OCHOA LAB BLOOD ORDERAB LES Final Result Performing Organization Address [facility]/ZIP Co de Phone Number [facility] [address] [place] [address] * CRP (acute phase) (09/19/2024 3:14 PM PHYSICIAN EXTENDER) [facility] C-RP 4.2 <8.0 mg/L [facility] Blood 09/19/2024 3:14 PM PHYSICIAN EXTENDER 09/19/2024 3:15 PM PHYSICIAN EXTENDER us Adriana OCHOA LAB BLOOD ORDERAB LES Final Result Performing Organization Address [facility]/ZIP Co de Phone Number [facility] [address] [facility] [place] [address] * Comprehensive metabolic panel (09/19/2024 3:14 PM PHYSICIAN EXTENDER) [facility] Glucose 85 65 - 99 mg/dL [facility] [...] [facility] Blood 09/19/2024 3:14 PM PHYSICIAN EXTENDER 09/19/2024 3:15 PM PHYSICIAN EXTENDER us Adriana OCHOA LAB BLOOD ORDERAB LES Final Result [facility] [place] [employer] [facility] [address] * Hepatitis panel, acute (09/05/2012 10:05 AM PHYSICIAN EXTENDER) [facility] Hep A IgM NON-REACT KAL NON-REACT KAL [facility]OR[facility] RESULTS Comment: Test performed at [employer] [address] [address] Director: JAIMEE BRIGGS DO,MPH 09/05/2012 10:0 5 AM PHYSICIAN EXTENDER us Ry Mccann MD LAB MICROBIOLOGY - GENERAL ORDER MANNY Final Result [facility] HISTORICAL RESULTS from Last 3 Months or Most Recently Relevant to Health Maintenance Insurance [facility] CHOICE PLUS [facility] OPEN ACCESS [facility] CORE HEALTH PLAN Care Teams Retail Assistant Store Manager Relationship Specialty Start Date End Date Bassam Blackman MD PCP - General 11/11/16 Elsa Maurice MD Referring Physician Pain Management 01/19/21 Molly Osorio MD [address] [place] [address] Referring Physician Dermatology 11/02/21 Tigre Madison MD [address] [facility] [address] [place] [address] Pulmonary Disease 11/21/22 John Gorman MD [address] [facility] [address] [place] [address] Consulting Physician Rheumatology 07/19/23 [place] [address] [facility] [address] [place] [address] Consulting Physician Gastroenterology 09/18/23
--- NOTE | 2024-12-09 16:44 | WPDPFTINT ---
PFT Procedure Performed PFT Procedure Performed Spirometry with Pre/Post Bronchodilator Plethysmography (Lung Vol) Diffusing Cap (DLCO) Flow Vol Loop PFT Interpretation This is a pulmonary function test with pre and post-bronchodilator spirometry, plethysmography and diffusing capacity. The test was performed and results interpreted in accordance with the 2019 and 2005 ATS/ERS Task Force guidelines respectively using the Global Lung Function Initiative-2012 reference equations. Patient demonstrated good effort and cooperation. Reproducibility criteria were met. The quality of the pre bronchodilator spirometry maneuver was Grade A and post bronchodilator spirometry maneuver was Grade A. Findings: Spirometry: There is decreased maximal expiratory airflow at all lung volumes with concave expiratory flow tracing. The contour the inspiratory flow tracing is normal. The pre bronchodilator FVC is 2.73 L, 94% predicted. The pre bronchodilator FEV1 is 1.77 L, 78% predicted. The pre bronchodilator FEV1: FVC ratio is 65%. The post bronchodilator FVC is 2.81 L, representing a 3% increase. The post bronchodilator FEV1 is 1.93 L, representing a 9% increase. The post bronchodilator FEV1: FVC ratio 69%. Plethysmography: The total lung capacity is 4.46 L, 91% predicted. The functional residual capacity is 2.97 L, 107% predicted. The residual volume is 1.67 L, 82% predicted. Diffusing capacity: The diffusing capacity unadjusted for hemoglobin and carboxyhemoglobin is 17.2, 83% predicted. The diffusing capacity adjusted for alveolar volume is 4.38, 99% predicted. Impression: There is a mild obstructive abnormality with a normal FEV1. There is no significant improvement after inhaling a single dose of albuterol. The lung volumes are normal. The diffusing capacity is normal. There are no prior studies for comparison
== END 2024-12-09 12:34 | disposition home or self-care (01) ==
PROVIDERS: PCP Internal Medicine; Visit Provider Internal Medicine Pulmonary Disease
DX: J45.50 Severe persistent asthma, uncomplicated (principal); R94.2 Abnormal results of pulmonary function studies
CPT/HCPCS: 94060; 94375; 94726; 94729

== ENCOUNTER 2025-07-24 14:17 | Outpatient (CLI) | payer MEDICARE, SELFPAY ==
--- NOTE | ~2025-07-24 | CT_ITS ---
EXAMINATION:CT diagnostic chest wo con DATE: 07/24/2025 14:45 INDICATION: Abnormal test TECHNIQUE: Computed tomography (CT) of the chest was performed without intravenous contrast. The dose-length product (DLP) was 136.75 mGy-cm. COMPARISON: None. FINDINGS: No consolidation effusion or pneumothorax. Mild bronchial wall thickening noted in the small and medium-sized airways. Tracheal column is patent. The lungs are hyperinflated. Mild emphysematous changes in the upper lung park. Heart and great vessels normal in size. No significant pericardial effusion or bulky lymphadenopathy. Extensive coronary artery calcifications are present. Diffuse degenerative and kyphotic changes throughout the thoracic spine. No acute process seen in the visualized portions of the upper abdomen or extrathoracic soft tissues. IMPRESSION: Mild bronchial wall thickening could be associated with atypical inflammatory or infectious process including asthma. No focal consolidation. Reviewed, dictated and finalized at location A. ATIONS ENGINEER IMPRESSION: Mild bronchial wall thickening could be associated with atypical in flammatory or infectious process including asthma. No focal consolidation.
== END 2025-07-24 14:18 | disposition home or self-care (01) ==
LOC: MICIMG 14:20
PROVIDERS: PCP Physician Assistant Medical; Visit Provider Internal Medicine Pulmonary Disease
DX: R91.8 Other nonspecific abnormal finding of lung field (principal); J98.09 Other diseases of bronchus, not elsewhere classified
CPT/HCPCS: 71250